=== PATIENT | male | born 1935 | race Caucasian/White ===

== ENCOUNTER → 2017-05-14 20:05 | Emergency (ER) | payer MEDICARE ==
[~2017-05-14 20:05] MED LIST: NS 0.9% 1000 ML* 1,000 ML IV ONE
--- NOTE | 2017-05-14 21:16 | RAD ---
Indication: Weakness. Single frontal view of the chest performed at 2034 hours was reviewed. Comparison is made with previous exam dated August 04, 2016. No mediastinal shift is noted. Heart is of normal size and configuration. Lung painting appear clear. Indwelling catheter is in place. IMPRESSION: NO ACTIVE CARDIOPULMONARY DISEASE IS NOTED.
[2017-05-14 21:19] LABS: Hematocrit 39 % (42-52); Hemoglobin 13.5 g/dl (14.0-18.0); Mean Corpuscular HGB Conc 35 g/dl (31-36); Mean Corpuscular Hemoglobin 31 pg (27-31); Mean Corpuscular Volume 88 fL (80-94); Mean Platelet Volume 7 um3 (7.4-10.4); Red Blood Count 4.39 10^6/ul (4.0-5.4); Red Cell Distribution Width 14 % (10.5-15); White Blood Count 8.8 10^3/ul (3.5-10.8)
[2017-05-14 21:46] LABS: Albumin 3.8 g/dL (3.2-5.2); BUN/Creatinine Ratio 14.5 (8-20); Calcium 9.2 mg/dL (8.6-10.3); EGFR African American 76.9 (>60); EGFR Non-African American 59.8 (>60); Globulin 3.1 g/dL (2-4); Magnesium 1.6 mg/dL (1.9-2.7); Potassium 3.8 mmol/L (3.5-5.0); Total Bilirubin 0.6 mg/dL (0.2-1.0); Total Protein 6.9 g/dL (6.4-8.9)
[2017-05-14 21:54] LABS: Budding Yeast Present (Absent); Urine Bacteria Absent (Absent); Urine Bilirubin Negative (Negative); Urine Glucose Negative (Negative); Urine Nitrite Negative (Negative)
[2017-05-14 22:13] LABS: TSH (Thyroid Stimulating Horm) 1.71 mcIU/mL (0.34-5.60)
--- NOTE | 2017-05-14 23:17 | ED ---
Maya Fairbanks Thomas, scribed for Alma Olson MD on 05/14/17 at 2026 . Syncope/Near Syncope - HPI Summary HPI Summary: The pt is a 81 y/o M BIB EMS c/o weakness that began suddenly today at 18:00. He reported that he felt the need to take a nap, which is atypical for him. When he tried to get up, he slid out of bed and could not get up. The weakness is aggravated and alleviated by nothing. The patient has treated the weakness with nothing [employer]. Pt additionally c/o vomiting (2x this PM), dysuria, and difficulty with voiding. He has consumed a small amount of liquid today. Pt denies any pain and SOB. PMHx: esophageal CA (with chemotherapy and radiation therapy, diagnosed August 2016), DM, HTN, HLD. PSHx: appendicitis. He is accompanied by his significant other. His primary care doctor is Dr. Ozuna. He sees Dr. Santos for his esophageal CA. - History Of Current Complaint Chief Complaint: EDGeneral Time Seen by Provider: 05/14/17 20:11 Hx Obtained From: Patient Onset/Duration: Sudden Onset, Lasting Hours - onset today at 18:00, Still Present Context: Unwitnessed Associated Head Trauma: No Associated Signs And Symptoms: Vomiting - 2x this PM, Weakness - onset today at 18:00, Other - POS: dysuria, difficulty voiding; NEG: any pain, SOB - Allergies/Home Medications Allergies/Adverse Reactions: Allergies Allergy/AdvReac Type Severity Reaction Status Date / Time No Known Allergies Allergy Verified 05/14/17 21:01 PMH/Surg Hx/FS Hx/Imm Hx Previously Healthy: No Endocrine/Hematology History: Reports: Hx Diabetes Cardiovascular History: Reports: Hx Hypercholesterolemia, Hx Hypertension Denies: Hx Myocardial Infarction Respiratory History: Denies: Other Respiratory Problems/Disorders GI History: Reports: Hx Gastroesophageal Reflux Disease, Other GI Disorders - Gi "issues" History: Denies: Hx Renal Disease Musculoskeletal History: Reports: Hx Arthritis Sensory History: Reports: Hx Contacts or Glasses - not with the pt, Hx Glaucoma - controlled, Hx Hearing Aid - bilat, only wears 1, Other Sensory Impairments - [place]; does not have hearing aides with him Opthamlomology History: Reports: Hx Contacts or Glasses - not with the pt, Hx Glaucoma - controlled, Other Sensory Impairments - [place]; does not have hearing aides with him Neurological History: Reports: Other Neuro Impairments/Disorders - diabetic neuropathy fingers and feets - Cancer History Cancer Type, Location and Year: ESOPHAGUS - Surgical History Surgery Procedure, Year, and Place: APPENDECTOMY Hx Anesthesia Reactions: No Infectious Disease History: No Infectious Disease History: Denies: Traveled Outside the [place] in Last 30 Days - Family History Known Family History: Positive: Cardiac Disease - Father of [place] at age of 65 - Social History Alcohol Use: None Substance Use Type: Reports: None Smoking Status (MU): Former Smoker Review of Systems Negative: Fever Negative: Shortness Of Breath Positive: Vomiting - 2x Positive: discharge, other - POS: difficulty voiding Negative: Other - NEG: any pain Positive: Weakness - onset today at 18:00 All Other Systems Reviewed And Are Negative: Yes Physical Exam Triage Information Reviewed: Yes Vital Signs On Initial Exam: Initial Vitals Temp Pulse Resp BP Pulse Ox 98.9 F 98 20 139/77 96 05/14/17 20:11 05/14/17 20:11 05/14/17 20:11 05/14/17 20:11 05/14/17 20:11 Vital Signs Reviewed: Yes Appearance: Positive: Well-Appearing, No Pain Distress Skin: Positive: Warm, Skin Color Reflects Adequate Perfusion, Dry Eyes: Positive: EOMI, BEBE ENT: Positive: Pharynx normal, TMs normal Neck: Positive: Supple, Nontender Respiratory/Lung Sounds: Positive: Clear to Auscultation, Breath Sounds Present. Negative: Rales, Rhonchi, Wheezes Cardiovascular: Positive: RRR. Negative: Murmur, Rub, Other - NEG: gallop Abdomen Description: Positive: Nontender, Soft. Negative: Distended, Guarding, Other: - NEG: rebound Bowel Sounds: Positive: Present Musculoskeletal: Positive: Strength/ROM Intact. Negative: Edema Left, Edema Right Neurological: Positive: Sensory/Motor Intact, Alert, Oriented to Person Place, Time, CN Intact II-III Psychiatric: Positive: Affect/Mood Appropriate Diagnostics - Vital Signs Vital Signs Temp Pulse Resp BP Pulse Ox 05/14/17 20:11 98.9 F 98 20 139/77 96 - Laboratory Lab Results: Lab Results 05/14/17 05/14/17 05/14/17 Range/Units 21:11 21:11 21:11 WBC 8.8 (3.5-10.8) 10^3/ul RBC 4.39 (4.0-5.4) 10^6/ul Hgb 13.5 L (14.0-18.0) g/dl Hct 39 L (42-52) % MCV 88 (80-94) fL MCH 31 (27-31) pg MCHC 35 (31-36) g/dl RDW 14 (10.5-15) % Plt Count 174 (150-450) 10^3/ul MPV 7 L (7.4-10.4) um3 Neut % (Auto) 91.6 H (38-83) % Lymph % (Auto) 4.3 L (25-47) % [place] % (Auto) 3.9 (1-9) % Eos % (Auto) 0 (0-6) % Baso % (Auto) 0.2 (0-2) % Absolute Neuts (auto) 8.1 H (1.5-7.7) 10^3/ul Absolute Lymphs (auto) 0.4 L (1.0-4.8) 10^3/ul Absolute Monos (auto) 0.3 (0-0.8) 10^3/ul Absolute Eos (auto) 0 (0-0.6) 10^3/ul Absolute Basos (auto) 0 (0-0.2) 10^3/ul Absolute Nucleated RBC 0.01 10^3/ul Nucleated RBC % 0.1 INR (Anticoag Therapy) 1.11 (0.89-1.11) Sodium 129 L (133-145) mmol/L Potassium 3.8 (3.5-5.0) mmol/L Chloride 97 L (101-111) mmol/L Carbon Dioxide 23 (22-32) mmol/L Anion Gap 9 (2-11) mmol/L BUN 17 (6-24) mg/dL Creatinine 1.17 (0.67-1.17) mg/dL Est GFR ( Amer) 76.9 (>60) Est GFR (Non-Af Amer) 59.8 (>60) BUN/Creatinine Ratio 14.5 (8-20) Glucose 196 H (70-100) mg/dL Lactic Acid (0.5-2.0) mmol/L Calcium 9.2 (8.6-10.3) mg/dL Magnesium 1.6 L (1.9-2.7) mg/dL Total Bilirubin 0.60 (0.2-1.0) mg/dL AST 19 (13-39) U/L ALT 12 (7-52) U/L Alkaline Phosphatase 79 (34-104) U/L Troponin I 0.00 (<0.04) ng/mL Total Protein 6.9 (6.4-8.9) g/dL Albumin 3.8 (3.2-5.2) g/dL Globulin 3.1 (2-4) g/dL Albumin/Globulin Ratio 1.2 (1-3) TSH 1.71 (0.34-5.60) mcIU/mL Urine Color Urine Appearance Urine pH (5-9) Ur Specific Cranks (1.010-1.030) Urine Protein (Negative) Urine Ketones (Negative) Urine Blood (Negative) Urine Nitrate (Negative) Urine Bilirubin (Negative) Urine Urobilinogen (Negative) Ur Leukocyte Esterase (Negative) Urine WBC (Auto) (Absent) Urine RBC (Auto) (Absent) Ur Squamous Epith Cells (Absent) Urine Bacteria (Absent) Urine Yeast (Absent) Urine Glucose (Negative) 05/14/17 05/14/17 Range/Units 21:11 21:35 WBC (3.5-10.8) 10^3/ul RBC (4.0-5.4) 10^6/ul Hgb (14.0-18.0) g/dl Hct (42-52) % MCV (80-94) fL MCH (27-31) pg MCHC (31-36) g/dl RDW (10.5-15) % Plt Count (150-450) 10^3/ul MPV (7.4-10.4) um3 Neut % (Auto) (38-83) % Lymph % (Auto) (25-47) % [place] % (Auto) (1-9) % Eos % (Auto) (0-6) % Baso % (Auto) (0-2) % Absolute Neuts (auto) (1.5-7.7) 10^3/ul Absolute Lymphs (auto) (1.0-4.8) 10^3/ul Absolute Monos (auto) (0-0.8) 10^3/ul Absolute Eos (auto) (0-0.6) 10^3/ul Absolute Basos (auto) (0-0.2) 10^3/ul Absolute Nucleated RBC 10^3/ul Nucleated RBC % INR (Anticoag Therapy) (0.89-1.11) Sodium (133-145) mmol/L Potassium (3.5-5.0) mmol/L Chloride (101-111) mmol/L Carbon Dioxide (22-32) mmol/L Anion Gap (2-11) mmol/L BUN (6-24) mg/dL Creatinine (0.67-1.17) mg/dL Est GFR ( Amer) (>60) Est GFR (Non-Af Amer) (>60) BUN/Creatinine Ratio (8-20) Glucose (70-100) mg/dL Lactic Acid 2.2 H* (0.5-2.0) mmol/L Calcium (8.6-10.3) mg/dL Magnesium (1.9-2.7) mg/dL Total Bilirubin (0.2-1.0) mg/dL AST (13-39) U/L ALT (7-52) U/L Alkaline Phosphatase (34-104) U/L Troponin I (<0.04) ng/mL Total Protein (6.4-8.9) g/dL Albumin (3.2-5.2) g/dL Globulin (2-4) g/dL Albumin/Globulin Ratio (1-3) TSH (0.34-5.60) mcIU/mL Urine Color Yellow Urine Appearance Clear Urine pH 6.0 (5-9) Ur Specific Cranks 1.015 (1.010-1.030) Urine Protein 2+(100 mg/dl) H (Negative) Urine Ketones Trace H (Negative) Urine Blood Negative (Negative) Urine Nitrate Negative (Negative) Urine Bilirubin Negative (Negative) Urine Urobilinogen Negative (Negative) Ur Leukocyte Esterase Trace H (Negative) Urine WBC (Auto) 1+(6-10/hpf) H (Absent) Urine RBC (Auto) Trace(0-2/hpf) (Absent) Ur Squamous Epith Cells Present H (Absent) Urine Bacteria Absent (Absent) Urine Yeast Present H (Absent) Urine Glucose Negative (Negative) Result Diagrams: 05/14/17 21:11 05/14/17 21:11 Lab Statement: Any lab studies that have been ordered have been reviewed, and results considered in the medical decision making process. - Radiology CXR Xray Interpretation: No Acute Changes - No acute changes. ED physician has reviewed this report and agrees. Radiology Interpretation Completed By: Radiologist - EKG 20:12 Cardiac Rate: NL - 95 BPM EKG Interpretation: RBBB. No changes from prior EKG at 08/09/16 except faster rate. 20:59 Cardiac Rate: NL - 95 BPM EKG Interpretation: RBBB. No changes from prior EKG at 08/09/16 except faster rate. Course/Dx Course Of Treatment: labs look ok with sl elevation of lactic acid, pt had hemphill placed for over 450 cc of urine in bladder on scanner post void, on placement of hemphill there was over 1000 cc found, pt feeling better if 2nd lactic is improved pt can go home with diagnosis of urinary obstruction - Diagnoses Provider Diagnoses: Urinary obstruction Discharge - Discharge Plan Condition: Stable Disposition: HOME The documentation as recorded by the Maya wynne Thomas accurately reflects the service I personally performed and the decisions made by me, Alma Olson MD.
[2017-05-14 23:19] VITALS: BP 132/66
== END | disposition home or self-care (01) ==
LOC: ED 20:05
DX: N13.9 Obstructive and reflux uropathy, unspecified (principal); I45.10 Unspecified right bundle-branch block; K21.9 Gastro-esophageal reflux disease without esophagitis; I10 Essential (primary) hypertension; Z87.891 Personal history of nicotine dependence
CPT/HCPCS: 36415; 71010; 80053; 81003; 81015; 83605; 83735; 84443; 84484; 85025; 85610; 87086; 87106; 93005; 99283

== ENCOUNTER 2018-04-05 06:34 | Day surgery (SDC) | payer MEDICARE ==
[~2018-04-05 06:34] MED LIST changes: +Acetaminophen TAB* 325 MG PO PRN; +Buffered Lidocaine 0.9% SYRIN* 5 ML/SYR SYRINGE INTRADERM ONE; -NS 0.9% 1000 ML* 1,000 ML IV ONE
[2018-04-05] MEDS ORDERED: Midazolam* 1 MG/ML 2 ML VIAL (2 MG) ONE (07:38)
[2018-04-05 08:44] VITALS: BP 149/90
[2018-04-05] MEDS ORDERED: Tetracaine 0.5% OPTH.SOL 4 ML* 1 DROP BTL ONE (12:46)
[2018-04-05] MEDS ORDERED: Povidone Iodine 5% OPTH* 30 ML BTL ONE (12:46)
[2018-04-05] MEDS ORDERED: acetaZOLAMIDE TAB* 250 MG ONE (12:46)
[2018-04-05] MEDS ORDERED: Lidocaine 1%* 5 ML VIAL ONE (12:46)
[2018-04-05] MEDS ORDERED: Ketorolac 0.5% OPHTH (NF) 0.5 % 5 ML BTL ONE (12:46)
[2018-04-05] MEDS ORDERED: Phenylephrine 2.5% OPTH.SOL* 2 ML BTL ONE (12:46)
[2018-04-05] MEDS ORDERED: Neomycin/Polymy/Dex OPHTH.OIN* 3.5 GM ONE (12:46)
[2018-04-05] MEDS ORDERED: Cyclopentolate 1% OPTH.SOL* 2 ML BTL ONE (12:46)
[2018-04-05] MEDS ORDERED: Tropicamide 1% OPTH.SOL* BTL ONE (12:46)
--- NOTE | 2018-04-05 23:51 | OP ---
DATE OF OPERATION: 04/05/18 - [facility] DATE OF : 35 SURGEON: Brody Gonzales MD ANESTHESIA: Monitored anesthesia care. PRE-OP DIAGNOSIS: Cataract, right eye with astigmatism. POST-OP DIAGNOSIS: Cataract, right eye with astigmatism. OPERATIVE PROCEDURE: Extracapsular cataract extraction of the right eye with intraocular lens implant. IMPLANTS: SN6AT5 20 diopter lens at 179 degrees to the right eye. COMPLICATIONS: None. DESCRIPTION OF PROCEDURE: The patient was given phenylephrine 2.5% and cyclopentolate 1% eye drops to the operative eye in the preoperative area. Corneal markings were placed with the patient sitting in upright position to facilitate toric lens placement. The patient was taken to the operating room where a time-out was taken to identify the correct patient, site, and side of surgery. The patient's right eye was prepped and draped in the usual sterile fashion with 5% Betadine. A second time-out was taken to verify the correct patient, site, and side of surgery and correct lens implant. A lid speculum was placed to the left eye. Corneal markings were placed at 179 degrees to facilitate toric lens placement. A 1-mm paracentesis blade was used to make a clear corneal incision at the superotemporal position. Preservative free 1% lidocaine was injected into the anterior chamber. DisCoVisc was then injected into the anterior chamber. A 2.75 mm keratome blade was used to make a triplanar incision at the inferotemporal position. A Malyugin ring was then inserted due to poor pupillary dilation. A cystotome initiated a capsulorrhexis which was completed with Utrata forceps in a continuous and curvilinear manner. Hydrodissection of the lens was performed with BSS on a cannula. The lens could be spun in a capsular bag. The phacoemulsification handpiece was used with a [id number] technique to remove the nucleus with 14.66 CDE. The I /A handpiece then removed the residual cortical lens material. DisCoVisc was injected to inflate the capsular bag. The planned SN6AT5 20.0 diopter lens was then injected into the capsular bag and rotated to 179 degrees. The residual DisCoVisc was removed from the eye with the I/A handpiece. The corneal incisions were hydrated and no leaks occurred at physiologic pressure around 20 mmHg per palpation. The lid speculum was removed and drapes removed. Maxitrol ointment was placed to the surface of the operative eye. An adhesive patch and shield was then placed on the operative eye. The patient was taken to the postoperative area in stable condition. [id number]/[facility] #: [id number] MTDD
== END 2018-04-05 08:51 | disposition home or self-care (01) ==
LOC: OREAST 06:34
PROVIDERS: ATTEND Student in an Organized Health Care Education/Training Program
DX: H25.11 Age-related nuclear cataract, right eye (principal); H21.561 Pupillary abnormality, right eye; H40.1131 Primary open-angle glaucoma, bilateral, mild stage; H52.201 Unspecified astigmatism, right eye; E11.9 Type 2 diabetes mellitus without complications; Z79.4 Long term (current) use of insulin; I10 Essential (primary) hypertension; E78.00 Pure hypercholesterolemia, unspecified; M19.90 Unspecified osteoarthritis, unspecified site; Z85.01 Personal history of malignant neoplasm of esophagus
CPT/HCPCS: A9270-GY; J2250; V2787

== ENCOUNTER 2018-04-12 10:34 | Day surgery (SDC) | payer MEDICARE ==
[2018-04-12] MEDS ORDERED: Midazolam* 1 MG/ML 2 ML VIAL (2 MG) ONE (12:24)
[2018-04-12 13:24] VITALS: BP 129/84
[2018-04-12] MEDS ORDERED: Tropicamide 1% OPTH.SOL* BTL ONE (14:12)
[2018-04-12] MEDS ORDERED: Ketorolac 0.5% OPHTH (NF) 0.5 % 5 ML BTL ONE (14:12)
[2018-04-12] MEDS ORDERED: Neomycin/Polymy/Dex OPHTH.OIN* 3.5 GM ONE (14:12)
[2018-04-12] MEDS ORDERED: Phenylephrine 2.5% OPTH.SOL* 2 ML BTL ONE (14:12)
[2018-04-12] MEDS ORDERED: acetaZOLAMIDE TAB* 250 MG ONE (14:12)
[2018-04-12] MEDS ORDERED: Tetracaine 0.5% OPTH.SOL 4 ML* 1 DROP BTL ONE (14:12)
[2018-04-12] MEDS ORDERED: Lidocaine 1%* 5 ML VIAL ONE (14:12)
[2018-04-12] MEDS ORDERED: Cyclopentolate 1% OPTH.SOL* 2 ML BTL ONE (14:12)
[2018-04-12] MEDS ORDERED: Povidone Iodine 5% OPTH* 30 ML BTL ONE (14:12)
--- NOTE | 2018-04-13 12:42 | OP ---
DATE OF OPERATION: 04/12/18 - [facility] DATE OF : 35 SURGEON: Brody Gonzales MD ANESTHESIA: Monitored anesthesia care. PRE-OP DIAGNOSIS: Cataract, left eye, with astigmatism. POST-OP DIAGNOSIS: Cataract, left eye, with astigmatism. OPERATIVE PROCEDURE: Extracapsular cataract extraction of the left eye with intraocular lens implant. IMPLANTS: SN6AT4 20.0 diopter lens at 178 degrees. COMPLICATIONS: None. DESCRIPTION OF PROCEDURE: The patient was given phenylephrine 2.5% and cyclopentolate 1% eye drops to the operative eye in the preoperative area. The patient was taken to the operating room where a time-out was taken to identify the correct patient, site, and side of surgery. The patient's left eye was prepped and draped in the usual sterile fashion with 5% Betadine. A second time -out was taken to verify the correct patient, site, and side of surgery and correct lens implant. A lid speculum was placed to the left eye. A 1-mm paracentesis blade was used to make a clear corneal incision in the inferotemporal position. Preservative-free 1% lidocaine was injected into the anterior chamber. DisCoVisc was then injected into the anterior chamber. A 2.75 -mm keratome blade was used to make a triplanar incision at the superotemporal position. A Malyugin ring was then inserted due to poor pupillary dilation. A cystotome initiated a capsulorrhexis which was completed with Utrata forceps in a continuous and curvilinear manner. Hydrodissection of the lens was performed with BSS on a cannula. The lens could be spun in the capsular bag. The phacoemulsification hand-piece was used with a [id number] technique to remove the nucleus with 27.2 CDE. The I/A handpiece then removed the residual cortical lens material. DisCoVisc was injected to inflate the capsular bag. The planned SN6AT4 20.0 diopter lens was injected into the capsular bag and rotated to 178 degrees. The residual DisCoVisc was removed from the eye with the I/A handpiece. The corneal incisions were hydrated and no leaks occurred at physiologic pressure around 20 mmHg per palpation. The lid speculum was removed and drapes removed. Maxitrol ointment was placed to the surface of the operative eye. An adhesive patch and shield was then placed on the operative eye. The patient was taken to the postoperative area in stable condition. [id number]/[facility] #: [id number] RODRÍGUEZ
== END 2018-04-12 13:27 | disposition home or self-care (01) ==
LOC: OREAST 10:34
PROVIDERS: ATTEND Student in an Organized Health Care Education/Training Program
DX: H25.12 Age-related nuclear cataract, left eye (principal); H40.1131 Primary open-angle glaucoma, bilateral, mild stage; H52.202 Unspecified astigmatism, left eye; E11.9 Type 2 diabetes mellitus without complications; Z79.4 Long term (current) use of insulin; I10 Essential (primary) hypertension; E78.00 Pure hypercholesterolemia, unspecified; M19.90 Unspecified osteoarthritis, unspecified site; Z85.01 Personal history of malignant neoplasm of esophagus
CPT/HCPCS: A9270-GY; J2250; V2787

== ENCOUNTER 2018-06-02 10:17 | Inpatient (IN) | payer MEDICARE ==
--- OUTSIDE RECORDS SUMMARY | 2018-06-02 11:22 | XMS REPORT | Continuity of Care Document ---
:1935 External Reference #:[id number] Author Name Brody Gonzales M.D. Address [address] [place] [address] Care Team Providers Name Role Phone Chuy Ozuna M.D. Primary Care Physician Unavailable Payers Type Date Identification Numbers Payment Provider Subscriber Effective: 2000 Policy Number: [id number] Medicare - [facility] Avila Aguilar PayID: [id number] [address] [place] [address] Policy Number: [id number] Formerly [facility] Avila Zamora [employer] Number: [id number] [id number] [address] PayID: [id number] [place] [address] Advance Directives Description No Information Available Problems Date Description Provider Status Onset: Multiple boils Active Onset: Bilateral hearing loss Active Onset: Essential hypertension Active Onset: Hypercholesterolemia Active Onset: Arthritis Active Onset: 07/15/2004 Type 2 diabetes mellitus Active Onset: 04/05/2015 Primary open angle glaucoma Sandra Bynmu O.D. Active Onset: 04/05/2015 Chronic allergic conjunctivitis Sandra Bynum O.D. Active Onset: 04/05/2015 Nuclear senile cataract Sandra Bynum O.D. Active Onset: 04/05/2015 Mild / Early Stage Glaucoma Sandra Bynum O.D. Active Onset: 10/19/2015 Combined form of senile cataract Sandra Bynum O.D. Active Onset: Malignant tumor of esophagus Active Onset: 10/29/2016 Bilateral primary open angle Sandra Bynum O.D. Active glaucoma Onset: 04/06/2018 Presence of intraocular lens Brody Gonzales M.D. 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 Active Family History Date Family Member(s) Problem(s) Comments Father No Current Problems Mother Cataract Mother Diabetes Mellitus Type 2 Social History Type Date Description Comments Sex Unknown Marital Status Has been 1 time Occupation [employer] Work Status Retired ETOH Use Rarely consumes alcohol Tobacco Use Start: Unknown Patient has never smoked Recreational Drug Use Denies Drug Use Smoking Status Reviewed: 05/13/18 Patient has never smoked Allergies, Adverse Reactions, Alerts Description No Known Drug Allergies Medications Medication Date Status Form Strength Qnty SIG Indications Ordering Provider Prednisolone 05/12 Active Suspension 1% 15ml 1 drops Brody Acetate both eyes hoang, three M.D. times a day Artificial Tears 05/12 Active Solution 0.1-0.3% as needed Brody Marcello Gonzales Latanoprost 05/12 Active Solution 0.005% 22.5m 1 drop Brody l both eyes Christian, every M.D. night Flonase Allergy Active Suspension 50mcg/Act Unknown Relief /0000 Valsartan Active Tablets 80mg Unknown /0000 Lantus Active Solution 100Unit/M Unknown /0000 L Omeprazole Active Capsules DR 20mg take 1 Unknown /0000 capsule by mouth once daily Amlodipine Active Tablets 10mg take 1 Unknown Besylate /0000 tablet by mouth once daily Transderm-Scop Active Patches 1mg/3Days Unknown (1.5 MG) /0000 72HR Bactrim DS Active Tablets 800-160mg 1 by Unknown /0000 mouth twice a day for 10 days Ciprofloxacin HCL 03/24 Hx Solution 0.3% 10uni instill ts one drop Christian, - in the M.D. 04/26 right eye /2017 three times a day, start the day before surgery Ketorolac 03/24 Hx Solution 0.5% 10ml use one Brody Tromethamine /2017 drop in , - the right M.D. 04/22 eye three times a day, start the day before surgery Prednisolone 03/24 Hx Suspension 1% 15ml 1 drops Brody right eye Christian, - three M.D. 04/22 times day. taper as directed Lastacaft 04/05 Hx Solution 0.25% 3ml 1 drop H10.45 Sandra Ochoa both eyes Stockwin, - every O.D. 04/17 Fish Oil 04/04 Hx Capsules 1000mg 1 by Sandra Ochoa mouth Stockwin, - every day O.D. 09/28 Flax Seed Oil 04/04 Hx Capsules 1000mg 1 by Sandra Ochoa mouth Stockwin, - every day O.D. 09/28 Travatan Z 04/04 Hx Solution 0.004% 1 drop Sandra Ochoa both eyes Stockwin, - every O.D. 10/25 Metformin HCL 00/00 Hx Tablets 1000mg Unknown / - 09/28 Aspir-81 00/ Hx Tablets DR 81mg Unknown /09/28 Hydrochlorothiazid Hx Capsules 12.5mg Unknown e - 04/17 Atenolol 00/00 Hx Tablets 50mg Unknown /09/28 Naproxen 00/00 Hx Tablets 250mg Unknown / - 04/17 Simvastatin /00 Hx Tablets 20mg Unknown /09/28 Glipizide /00 Hx Tablets 10mg Unknown /09/28 Multi Complete / Hx Capsules Unknown /09/28 Vitamin B-2 00/00 Hx Tablets 50mg Unknown /09/28 Hydrocodone-Acetam 00/00 Hx Tablets 5-325mg Take 1 Unknown inophen /0000 Tablet By - Mouth 04/17 Every To 6 Hours If Needed For Pain Latanoprost Hx Solution 0.005% 1 drop Sandra Ochoa / both eyes Stockwin, - every O.D. 04/22 Vitamin C 00/00 Hx Chewtabs 500mg Unknown / - 09/28 Vitamin D3 High 00/00 Hx Capsules 1000Unit Unknown Potency /09/28 Osteo Bi-Flex 00/00 Hx Tablets Unknown Advanced Triple /0000 Strength - 09/28 Glucosamine 00 Hx Capsules 500Comp Unknown Chondroitin 500 /0000 Complex - 09/28 Spironolactone Hx Tablets 50mg Unknown /0000 - 09/28 Gabapentin Hx Capsules 100mg Unknown / - 09/28 Flunisolide Hx Solution 25mcg/Act Unknown /0000 (0.025%) - 09/28 Aleve Hx Capsules 220mg as needed Unknown / - 09/28 Tylenol Hx Tablets 325mg as needed Unknown / - 09/[address] 5mg as needed Unknown / - 09/28 Marquez Concentrate Hx Concentrate Unknown / - 09/28 Diclofenac Sodium Hx Gel 1% apply 2 Unknown /0000 grams - twice a 09/28 day needed for pain To The Hands Ondansetron Hx Tablets 4mg Dissolve Unknown /0000 Dispers 1 Tablet - On Tongue 04/27 Every Hours If Needed Lubricant Eye Hx Solution 0.4-0.3% 1 drop Unknown Drops /0000 both eyes - every day 05/12 Immunizations Description No Information Available Vital Signs Description No Information Available Results Test Date Facility Test Result H/L Range Note Laboratory test 04/12/2018 [facility] 125 mg/dL High 70-[address] [place] [address] (607)- - Laboratory test 04/05/2018 [facility] 140 mg/dL High 70-100 [address] [place] [address] (607)- - 1 Tail Trimmer: [id number] Tail Trimmer: [id number] Procedures Date Code Description Status 04/12/2018 37581 Cataract Surgery Complex Completed 04/05/2018 84906 Cataract Surgery Complex Completed 03/24/2018 93555 Ophthalmic Biometry Completed 03/24/2018 65417 Ophthalmic Biometry Completed 03/02/2018 77146 Est Patient Comprehensive Exam Completed 11/26/2017 44618 Scanning Computerized Ophthalmic Diagnostic Imag Posterior Completed Seg On 11/26/2017 50650 Visual Field Exam Extended Completed 11/26/2017 19047 Est Patient Comprehensive Exam Completed 04/29/2017 97487 Est Patient Intermediate Exam Completed 10/29/2016 03553 Scanning Computerized Ophthalmic Diagnostic Imag Posterior Completed Seg On 10/29/2016 55474 Visual Field Exam Extended Completed 10/29/2016 46475 Est Patient Comprehensive Exam Completed 04/18/2016 56856 Est Patient Intermediate Exam Completed 04/18/2016 90055 Visual Field Exam Extended Completed 10/19/2015 09860 Scanning Computerized Ophthalmic Diagnostic Imag Posterior Completed Seg On 10/19/2015 22973 Est Patient Comprehensive Exam Completed 04/05/2015 40383 Visual Field Exam Extended Completed 04/05/2015 28262 Est Patient Comprehensive Exam Completed 10/06/2014 83006 Scanning Computerized Ophthalmic Diagnostic Imag Posterior Completed Seg On 10/06/2014 76895 Est Patient Comprehensive Exam Completed 04/06/2014 59979 Visual Field Exam Extended Completed 10/07/2013 87728 Scanning Computerized Ophthalmic Diagnostic Imag Posterior Completed Seg On 10/07/2013 72458 Est Patient Comprehensive Exam Completed 04/07/2013 03245 Visual Field Exam Extended Completed 04/07/2013 34293 Est Patient Intermediate Exam Completed 10/04/2012 74585 Est Patient Comprehensive Exam Completed 10/04/2012 32092 Scanning Computerized Ophthalmic Diagnostic Imag Posterior Completed Seg On 03/19/2012 63402 Visual Field Exam Extended Completed 03/19/2012 45652 Est Patient Intermediate Exam Completed 09/17/2011 10199 Scanning Computerized Ophthalmic Diagnostic Imag Posterior Completed Seg On 09/17/2011 40980 Est Patient Comprehensive Exam Completed 05/14/2011 47428 Visual Field Exam Extended Completed 05/14/2011 91669 Est Patient Intermediate Exam Completed 04/25/2011 24149 Scanning Computerized Ophthalmic Diagnostic Imag Posterior Completed Seg On 04/25/2011 93203 Determination Of Refractive State Completed 04/25/2011 55580 Est Patient Comprehensive Exam Completed 10/25/2010 75314 Est Patient Intermediate Exam Completed 04/24/2010 20162 Est Patient Intermediate Exam Completed 04/24/2010 63039 Visual Field Exam Extended Completed 04/24/2010 28686 Scanning Laser W/Interp And Report Completed 10/24/2009 25230 Visual Field Exam Extended Completed 10/24/2009 72523 Est Patient Intermediate Exam Completed 05/09/2009 70250 Visual Field Exam Extended Completed 04/25/2009 88422 Scanning Laser W/Interp And Report Completed 04/25/2009 24622 Determination Of Refractive State Completed 04/25/2009 37141 Est Patient Comprehensive Exam Completed 04/25/2009 70342 Pachymetry Completed 03/03/2007 33351 Visual Field Exam Extended Completed 02/25/2005 32377 Rescheduled Appointment Completed 08/30/2004 52392 Est Patient Intermediate Exam Completed 08/27/2004 92127 Determination Of Refractive State Completed 08/27/2004 00378 Est Patient Comprehensive Exam Completed 02/21/2004 29631 Est Patient Intermediate Exam Completed Encounters Type Date Location Provider Dx Diagnosis Office Visit 03/24/2018 Brody Petit, H25.11 Age- related 9:00a , kayden MKatrina nuclear cataract, right eye H40.1131 Primary open-angle glaucoma, bilateral, mild stage H25.12 Age-related nuclear cataract, left eye Office Visit 04/06/2014 10:40a Joseph Ochoa 365.11 Primary Ed De La Torre MD, kayden Bynum O.D. Angle Glaucoma 365.71 Mild / Early Stage Glaucoma Office Visit 08/23/2008 10:45a Joseph Velazquez, 365.11 Primary Open Angle MD Wil, kayden Armendariz Glaucoma Office Visit 02/22/2008 8:45a Joseph Velazquez 365.11 Primary Open Angle MD Wil, kayden Armendariz Glaucoma Office Visit 08/19/2007 9:00a Joseph Velazquez 365.11 Primary Open Angle MD Wil, kayden Armendariz Glaucoma Office Visit 03/03/2007 9:00a Joseph Velazquez 365.11 Primary Open Angle MD Wil, kayden Armednariz Glaucoma Office Visit 03/03/2007 8:00a Joseph Velazquez 365.11 Primary Open Angle MD Wil, kayden MKatrina Glaucoma Office Visit 02/26/2006 10:30a Joseph Velazquez, 250.00 Diabetes/ Type 2 MD Wil, kayden Singh. W/O Complication 365.11 Primary Open Angle Glaucoma Office Visit 08/28/2005 10:30a Joseph Velazquez 365.11 Primary Open Angle MD Wil, kayden MKatrina Glaucoma Office Visit 02/27/2005 10:45a Joseph Velazquez, 365.11 Primary Open Angle MD Wil, pc Samantha. Glaucoma Office Visit 09/02/2004 12:10p Joseph Ochoa 372.14 Allergic MD Wil, kayden Bynum O.D. Conjunctivitis Plan of Treatment Future Appointment(s):10/28/2018 11:00 am - Brody Gonzales M.D. at Joseph De La Torre MD, 05/13/2018 - Brody Gonzales M.D.Z96.1 Presence of intraocular lensComments:Smoking can increase the risk of developing or worsening any eye related disease, as well as affect your overall health. If you are a smoker, we strongly recommend that you quit.If you are not a smoker, we strongly recommend that you do not start. The artificial lens implants in both eyes appear to be stable at this time. ~B_STOP USING THE LATANOPROST EYE DROPS.STOP USING THE PREDNISOLONE EYE DROPS.CONTINUE USING OVER THE COUNTER ARTIFICAL TEARS. STORE THE ARTIFICAL TEARS IN THE REFRIGERATOR TOCHILL THE EYEDROPS. USE WARM COMPRESSES(WASHCLOTH) TWO TIMES A DAY(morning and night) FOR 3-5 MINUTES TO BOTH EYES. WASH EYELIDS GENTLY WITH BABY SHAMPOO 2-3 TIMES A WEEK.IF YOUR SYMPTOMS FAIL TO IMPROVE OR WORSEN CALL THE CLINIC AND I WILL PRESCRIBE AN ANTIBIOTIC EYE DROP ~U_NEOMYCIN~u_, USE 1 DROP 3 TIMES A DAY TO BOTH EYES FOR TWO WEEKS THEN STOP. I WILL RECHECK IN 1 MONTH.~b_Follow up:4 Week Follow Up At your next visit, we are not planning to dilate your eyes. However, if you haveany changes in your vision or new symptoms, there are certain situations that require us to dilate your eyes. If Dr. Gonzales requests any additional testing, that may require extra time. If you have any questions before your next appointment, please call our office at .
--- OUTSIDE RECORDS SUMMARY | 2018-06-02 11:22 | XMS REPORT ---
:1935 External Reference #:[id number] Author Organization [facility] Address [address] [place] [address] [place] [address] Phone [phone] Care Team Providers Name Role Phone Chuy Ozuna III, MD Primary Care Physician Unavailable Payers Type Date Identification Numbers Payment Provider Subscriber Medicare Primary Policy Number: [id number] Medicare Avila Aguilar PayID: [id number] [address] [place] [address] Medigap Part B Effective: 2000 Policy Number: [id number] Medicare Avila Aguilar Expires: 2018 PayID: [id number] [address] [place] [address] Medigap Part B Policy Number: [id number] [facility] Avila Aguilar PayID: [id number] [address] [place] [address] Advance Directives Type Date Description Status Comment Other Directive 04/15/2017 Health Care /Living Will Current and Verified Problems Date Description Provider Status Onset: 08/03/2017 Localized, primary osteoarthritis Nelly Strickland M.D. Active Onset: 11/23/2017 Disorder of shoulder Nelly Strickland M.D. Active Onset: 12/24/2017 Injury of shoulder region Babar Go MD Active Onset: 01/18/2018 Type 2 diabetes mellitus Chuy Ozuna M.D. Active Onset: 01/18/2018 Essential hypertension Chuy Ozuna M.D. Active Family History Date Family Member(s) Problem(s) Comments General Diabetes General Heart Disease General Hypertension Father due to Heart Disease () Mother Arthritis, Osteo Mother Arthritis First Brother Diabetes Social History Type Date Description Comments Marital Status Lives With ETOH Use Denies alcohol use Smoking Patient is a former smoker stopped in 1999. Smoked about 40 years, up to 2 ppd. Exercise Type/Frequency Exercises rarely Allergies, Adverse Reactions, Alerts Date Description Reaction Status Severity Comments 03/27/2016 Hayfever active Medications Medication Date Status Form Strength Qnty SIG Indications Ordering Provider Metformin HCL 07/16/ Active Tablets 500mg 120ta 2 by E11.8 Chuy Gilbert 2017 bs mouth Sulma, twice a M.D. day Valsartan / Active Tablets 320mg 1 by Unknown 0000 mouth every day Flonase Allergy / Active Suspension 50mcg/Act spray 1 Unknown Relief 0000 spray in each nostril twice daily Omeprazole / Active Capsules DR 20mg 1 by Unknown 0000 mouth every day Lantus / Active Solution 100Unit/M 40 units Unknown 0000 L daily or as directed Latanoprost / Active Solution 0.005% 1 drop to Unknown 0000 both eyes every evening Osteo Bi-Flex / Active Tablets Unknown Advanced Triple 0000 Strength Amlodipine / Active Tablets 10mg 1 by Unknown Besylate 0000 mouth every day Tamsulosin HCL / Active Capsules 0.4mg take 1 Unknown 0000 capsule by mouth once daily Glucosamine / Active Capsules 1500Com 2 by Unknown Chondroitin 1500 0000 mouth Complex every day at night Meloxicam 12/23/ Hx Tablets 7.5mg 20tab take one M54.2 Chuy Gilbert 2018 - s tab twice Sulma, 03/15/ daily as M.D. 2018 needed for pain, avoid other nsaids Voltaren 03/27/ Hx Gel 1% 200gm apply 2 E83.52 Joseph 2016 grams Moraima, twice M.D. daily as needed for pain to the hands Vitamin B-12 / Hx Tablets Sub 2500mcg 1/week Unknown 0000 Vitamin C / Hx Chewtabs 500mg 1 by Unknown 0000 mouth every day Vitamin D / Hx Tablets 1000Unit by mouth Unknown 0000 everyday Aspirin Ec Low / Hx Tablets DR 81mg 1 by Unknown Dose 0000 mouth every day Osteo Bi-Flex / Hx Tablets 250-200mg 2 by Unknown Regular Strength 0000 mouth every day Multi For Him / Hx Tablets 1 by Unknown 50+ 0000 mouth every day Flaxseed Oil // Hx Capsules 1000mg 1 by Unknown 0000 mouth every day Fish Oil // Hx Capsules 300mg 1 by Unknown Concentrate 0000 mouth twice day Glucosamine / Hx Capsules 500Comp 1 by Unknown Chondroitin 500 0000 mouth Complex every day Latanoprost / Hx Solution 0.005% Unknown 0000 Lantus / Hx Solution 100Unit/M 50 units Unknown 0000 - L 2015 Metformin HCL / Hx Tablets 500mg 1 by Unknown 0000 mouth twice a day Glipizide / Hx Tablets 10mg 1 by Unknown 0000 mouth twice a day Atenolol / Hx Tablets 50mg 1 by Unknown 0000 - mouth day 2017 Spironolactone / Hx Tablets 50mg 1 by Unknown 0000 mouth every day Diclofenac / Hx Tablets DR 75mg take 1 E83.52 Unknown Sodium 0000 - tablet 03/27/ twice a 2015 day with food Atorvastatin / Hx Tablets 40mg 1 by Unknown Calcium 0000 mouth every day Gabapentin / Hx Capsules 100mg 2/day Unknown 0000 Colchicine / Hx Tablets 0.6mg 1 by Unknown 0000 mouth twice a day prn Aleve / Hx Capsules 220mg 2 by Unknown 0000 mouth twice a day as needed Acetaminophen ER / Hx Tablets ER 650mg 1 tab by Unknown 0000 mouth twice a day as needed Dulcolax / Hx Tablets DR 5mg 2 by Unknown 0000 mouth every at bedtime Aspirin Ec Low / Hx Tablets DR 81mg 1 by Unknown Dose 0000 - mouth 07/15/ every day 2016 Glucosamine / Hx Capsules 500Comp 1 by Unknown Chondroitin 500 0000 - mouth Complex 07/16/ twice a 2016 day Medications Administered in Office Medication Date Status Form Strength Qnty SIG Indications Ordering Provider Depomedrol Administered Injection Nelly 40MG 018 Marcello Strickland Depomedrol Administered Injection Nelly 40MG 018 Marcello Strickland Depomedrol Administered Injection Nelly 40MG 018 Marcello Strickland Depomedrol Administered Injection Nelly 40MG 018 Marcello Strickland Depomedrol Administered Injection Nelly 40MG 018 Marcello Strickland Depomedrol Administered Injection Nelly 40MG 017 Marcello Strickland Depomedrol Administered Injection Nelly 40MG 017 Marcello Strickland Vital Signs Date Vital Result Comment 05/19/2018 Height 69 inches 5'9" Heart Rate 88 /min BP Systolic Sitting 122 mmHg BP Diastolic Sitting 80 mmHg Respiratory Rate 24 /min Body Temperature 97.5 F Pain Level 4 03/15/2018 Height 69 inches 5'9" Weight 252.00 lb Heart Rate 116 /min BP Systolic Sitting 140 mmHg BP Diastolic Sitting 86 mmHg Body Temperature 97.6 F O2 % BldC Oximetry 96 % BMI (Body Mass Index) 37.2 kg/m2 02/24/2018 Height 69 inches 5'9" Weight 250.00 lb Heart Rate 108 /min BP Systolic 132 mmHg BP Diastolic 87 mmHg O2 % BldC Oximetry 95 % BMI (Body Mass Index) 36.9 kg/m2 02/10/2018 Height 69 inches 5'9" Weight 249.00 lb Heart Rate 82 /min BP Systolic Sitting 140 mmHg BP Diastolic Sitting 80 mmHg Respiratory Rate 16 /min Pain Level 5 BMI (Body Mass Index) 36.8 kg/m2 01/18/2018 Height 69 inches 5'9" Weight 248.50 lb Heart Rate 96 /min BP Systolic 126 mmHg BP Diastolic 78 mmHg O2 % BldC Oximetry 97 % BMI (Body Mass Index) 36.7 kg/m2 12/24/2017 Height 69 inches 5'9" Weight 253.00 lb BP Systolic 134 mmHg BP Diastolic 78 mmHg Respiratory Rate 20 /min Pain Level 0 BMI (Body Mass Index) 37.4 kg/m2 12/23/2017 Weight 238.00 lb Heart Rate 102 /min BP Systolic Sitting 118 mmHg BP Diastolic Sitting 78 mmHg Body Temperature 98.2 F O2 % BldC Oximetry 96 % 11/23/2017 Height 70 inches 5'10" Heart Rate 58 /min BP Systolic 120 mmHg BP Diastolic 76 mmHg Respiratory Rate 17 /min Body Temperature 97.7 F Pain Level 2 11/09/2017 Height 70 inches 5'10" Weight 248.00 lb BP Systolic 126 mmHg BP Diastolic 82 mmHg Body Temperature 97.9 F BMI (Body Mass Index) 35.6 kg/m2 10/27/2017 Height 69 inches 5'9" Weight 253.00 lb w/ shoes Heart Rate 80 /min reg BP Systolic Sitting 144 mmHg Lue BP Diastolic Sitting 94 mmHg Lue Respiratory Rate 16 /min Pain Level 5 right arm BMI (Body Mass Index) 37.4 kg/m2 10/20/2017 Weight 249.00 lb Heart Rate 93 /min BP Systolic Sitting 135 mmHg BP Diastolic Sitting 82 mmHg Body Temperature 97.2 F O2 % BldC Oximetry 98 % 08/03/2017 Height 69 inches 5'9" Weight 245.00 lb BP Systolic 140 mmHg BP Diastolic 70 mmHg Body Temperature 97.4 F Pain Level 6 BMI (Body Mass Index) 36.2 kg/m2 07/16/2017 Height 69.5 inches 5'9.50" Weight 245.00 lb Heart Rate 98 /min BP Systolic Sitting 126 mmHg BP Diastolic Sitting 60 mmHg Body Temperature 98.1 F O2 % BldC Oximetry 97 % BMI (Body Mass Index) 35.7 kg/m2 04/15/2017 Weight 236.00 lb Heart Rate 96 /min BP Systolic Sitting 130 mmHg BP Diastolic Sitting 78 mmHg Body Temperature 97.1 F O2 % BldC Oximetry 95 % 08/18/2016 Height 70 inches 5'10" Weight 213.00 lb Heart Rate 68 /min BP Systolic 132 mmHg BP Diastolic 74 mmHg Respiratory Rate 18 /min Body Temperature 97.1 F BMI (Body Mass Index) 30.6 kg/m2 03/27/2016 Height 69.5 inches 5'9.50" Weight 243.50 lb Heart Rate 64 /min BP Systolic Sitting 142 mmHg BP Diastolic Sitting 70 mmHg Respiratory Rate 16 /min Body Temperature 97.6 F Pain Level 1 BMI (Body Mass Index) 35.4 kg/m2 Results Test Date Test Result H/L Range Note Laboratory test finding 04/12/2018 Point of Care Glucose 125 mg/dL High 70 -100 1 Laboratory test finding 04/05/2018 Point of Care Glucose 140 mg/dL High 70 -100 2 Basic Metabolic Panel 03/23/2018 Sodium 138 mmol/L 135-145 Potassium 3.6 mmol/L 3.5-5.0 Chloride 105 mmol/L 101-111 Co2 Carbon Dioxide 24 mmol/L 22-32 Anion Gap 9 mmol/L 2-11 Glucose 199 mg/dL High 70-100 Blood Urea Nitrogen 16 mg/dL 6-24 Creatinine 0.94 mg/dL 0.67-1.17 BUN/Creatinine Ratio 17.0 8-20 Calcium 9.6 mg/dL 8.6-10.3 Egfr Non- 76.8 >60 Egfr 93.0 >60 3 Laboratory test finding 03/15/2018 Hemoglobin A1c 6.8 5-7 Laboratory test finding 09/08/2017 Surgical Interface SEE RESULT BELOW 4 Order Laboratory test finding 09/08/2017 Point of Care Glucose 92 mg/dL 70-100 5 Laboratory test finding 09/08/2017 Point of Care Glucose 78 mg/dL 70-100 6 Laboratory test finding 09/08/2017 Point of Care Glucose 94 mg/dL 70-100 7 Urine Culture And 09/01/2017 Urine Culture SEE RESULT BELOW 8 Sensitivities Urinalysis Profile 09/01/2017 Urine Color Yellow Urine Appearance Cloudy Urine Specific [place] 1.016 1.010-1.030 Urine pH 5.0 5-9 Urine Urobilinogen Negative Negative Urine Ketones Negative Negative Urine Protein 1+(30 mg/dL) Negative Urine Leukocytes 3+ Negative Urine Blood 1+ Negative Urine Nitrite Negative Negative Urine Bilirubin Negative Negative Urine Glucose Negative Negative Urine White Blood Cell 3+(>20/hpf) Absent Urine Red Blood Cell 3+(>10/hpf) Absent Urine Bacteria Absent Absent Urine Yeast Present Absent Laboratory test finding 07/16/2017 Hemoglobin A1c 8.0 High 5-7 CBC Auto Diff 06/09/2017 White Blood Count 6.8 10^3/uL 3.5-10.8 Red Blood Count 4.33 10^6/uL 4.0-5.4 Hemoglobin 13.5 g/dL Low 14.0-18.0 Hematocrit 39 % Low 42-52 Mean Corpuscular Volume 90 fL 80-94 Mean Corpuscular Hemoglobin 31 pg 27-31 Mean Corpuscular HGB Conc 35 g/dL 31-36 Red Cell Distribution Width 15 % 10.5-15 Platelet Count 277 10^3/uL 150-450 Mean Platelet Volume 8 um3 7.4-10.4 Abs Neutrophils 4.4 10^3/uL 1.5-7.7 Abs Lymphocytes 1.6 10^3/uL 1.0-4.8 Abs Monocytes 0.6 10^3/uL 0-0.8 Abs Eosinophils 0.1 10^3/uL 0-0.6 Abs Basophils 0.1 10^3/uL 0-0.2 Abs Nucleated RBC 0 10^3/uL Granulocyte % 65.5 % 38-83 Lymphocyte % 23.2 % Low 25-47 Monocyte % 8.7 % 1-9 Eosinophil % 1.7 % 0-6 Basophil % 0.9 % 0-2 Nucleated Red Blood Cells % 0 Comp Metabolic Panel 06/09/2017 Sodium 138 mmol/L 133-145 Potassium 3.5 mmol/L 3.5-5.0 Chloride 104 mmol/L 101-111 Co2 Carbon Dioxide 24 mmol/L 22-32 Anion Gap 10 mmol/L 2-11 Glucose 190 mg/dL High 70-100 Blood Urea Nitrogen 17 mg/dL 6-24 Creatinine 0.99 mg/dL 0.67-1.17 BUN/Creatinine Ratio 17.2 8-20 Calcium 9.7 mg/dL 8.6-10.3 9 Total Protein 7.4 g/dL 6.4-8.9 Albumin 3.7 g/dL 3.2-5.2 Globulin 3.7 g/dL 2-4 Albumin/Globulin Ratio 1.0 1-3 Total Bilirubin 0.40 mg/dL 0.2-1.0 Alkaline Phosphatase 84 U/L 34-104 Alt 17 U/L 7-52 Ast 17 U/L 13-39 Egfr Non- 72.6 >60 Egfr 93.3 >60 10 Laboratory test 06/09/2017 Hemoglobin A1c (Glyco 7.6 % High Less than 6.0 11 finding HGB) Urinalysis Profile 05/14/2017 Urine Color Yellow Urine Appearance Clear Urine Specific [place] 1.015 1.010-1.030 Urine pH 6.0 5-9 Urine Urobilinogen Negative Negative Urine Ketones Trace Negative Urine Protein 2+(100 mg/dL) Negative Urine Leukocytes Trace Negative Urine Blood Negative Negative Urine Nitrite Negative Negative Urine Bilirubin Negative Negative Urine Glucose Negative Negative Urine White Blood Cell 1+(6-10/hpf) Absent Urine Red Blood Cell Trace(0-2/hpf) Absent Urine Bacteria Absent Absent Urine Squamous Epithelial Cell Present Absent Urine Yeast Present Absent Urine Culture And 05/14/2017 Urine Culture SEE RESULT BELOW 12 Sensitivities Inr/Protime 05/14/2017 Inr 1.11 0.89-1.11 Laboratory test finding 05/14/2017 Magnesium 1.6 mg/dL Low 1.9-2.7 TSH (Thyroid Stim Horm) 1.71 mcIU/mL 0.34-5.60 Comp Metabolic Panel 05/14/2017 Sodium 129 mmol/L Low 133-145 Potassium 3.8 mmol/L 3.5-5.0 Chloride 97 mmol/L Low 101-111 Co2 Carbon Dioxide 23 mmol/L 22-32 Anion Gap 9 mmol/L 2-11 Glucose 196 mg/dL High 70-100 Blood Urea Nitrogen 17 mg/dL 6-24 Creatinine 1.17 mg/dL 0.67-1.17 BUN/Creatinine Ratio 14.5 8-20 Calcium 9.2 mg/dL 8.6-10.3 Total Protein 6.9 g/dL 6.4-8.9 Albumin 3.8 g/dL 3.2-5.2 Globulin 3.1 g/dL 2-4 Albumin/Globulin Ratio 1.2 1-3 Total Bilirubin 0.60 mg/dL 0.2-1.0 Alkaline Phosphatase 79 U/L 34-104 Alt 12 U/L 7-52 Ast 19 U/L 13-39 Egfr Non- 59.8 >60 Egfr 76.9 >60 13 Laboratory test finding 05/14/2017 Troponin-I (TnI) 0.00 ng/mL <0.04 CBC Auto Diff 05/14/2017 White Blood Count 8.8 10^3/uL 3.5-10.8 Red Blood Count 4.39 10^6/uL 4.0-5.4 Hemoglobin 13.5 g/dL Low 14.0-18.0 Hematocrit 39 % Low 42-52 Mean Corpuscular Volume 88 fL 80-94 Mean Corpuscular Hemoglobin 31 pg 27-31 Mean Corpuscular HGB Conc 35 g/dL 31-36 Red Cell Distribution Width 14 % 10.5-15 Platelet Count 174 10^3/uL 150-450 Mean Platelet Volume 7 um3 Low 7.4-10.4 Abs Neutrophils 8.1 10^3/uL High 1.5-7.7 Abs Lymphocytes 0.4 10^3/uL Low 1.0-4.8 Abs Monocytes 0.3 10^3/uL 0-0.8 Abs Eosinophils 0 10^3/uL 0-0.6 Abs Basophils 0 10^3/uL 0-0.2 Abs Nucleated RBC 0.01 10^3/uL Granulocyte % 91.6 % High 38-83 Lymphocyte % 4.3 % Low 25-47 Monocyte % 3.9 % 1-9 Eosinophil % 0 % 0-6 Basophil % 0.2 % 0-2 Nucleated Red Blood Cells % 0.1 Laboratory test finding 05/14/2017 Lactic Acid 2.2 mmol/L High 0.5-2.0 14 Laboratory test finding 08/19/2016 Point of Care Glucose 114 mg/dL High 74 -106 15 Laboratory test finding 08/19/2016 Point of Care Glucose 111 mg/dL High 74 -106 16 Anca Panel For Vasculitis 03/28/2016 Myeloperoxidase AB <0.2 U 17 Proteinase 3 AB <0.2 U 18 Laboratory test finding 03/28/2016 Creatine Kinase(CK) 92 U/L 10-223 C Reactive Protein 8.59 mg/L High < 5.00 19 Cyclic Citrullinated Pep Igg <15.6 U 20 Rheumatoid Factor <15 IU/mL <15 21 Uric Acid 5.2 mg/dL 4.4-7.6 Angiotensin Converting Enzyme 30 U/L 8 - 53 22 Erythrocyte Sed Rate 28 mm/Hr 0-40 Protein Electrophoresis 03/28/2016 Total Protein(Pep) 7.1 g/dL 6.3 - 7.9 Albumin 3.3 g/dL 3.4-4.7 Alpha-1 Globulin 0.3 g/dL 0.1-0.3 Alpha-2 Globulin 1.3 g/dL 0.6-1.0 Beta Globulin 0.9 g/dL 0.7-1.2 Gamma Globulin 1.4 g/dL 0.6-1.6 Albumin/Globulin Ratio 0.86 Impression See Comment 23 Laboratory test finding 03/28/2016 TSH (Thyroid Stim Horm) 5.13 mcIU/mL 0.34-5.60 Vitamin B12 423 pg/mL 180-914 24 1 Undercutter Operator: [id number] 2 Undercutter Operator: [id number] 3 Because ethnic data is not always readily available, this report includes an eGFR for both -Americans and non- Americans. The National Kidney Disease Education Program (NKDEP) does not endorse the use of the MDRD equation for patients that are not between the ages of 18 and 70, are , have extremes of body size, muscle mass, or nutritional status, or are non- or non-. According to the National Kidney Foundation, irrespective of diagnosis, the stage of the disease is based on the level of kidney function: Stage Description GFR(mL/min/1.73 m(2)) 1 Kidney damage with normal or decreased GFR 90 2 Kidney damage with mild decrease in GFR 60-89 3 Moderate decrease in GFR 30-59 4 Severe decrease in GFR 15-29 5 Kidney failure <15 (or dialysis) 4 SEE RESULT BELOW Name: AVILA AGUILAR : [address]: Steve Cantu MD Acct: [id number] Unit: [id number] AGE: 81 Location: ENDO Re09/08/17 SEX: M Status: DEP REF SPEC: [id number] AMY: 09/08/17-[address] [facility] [address]: Steve Cantu MD REQ: [id number] RECD: 09/08/17052 STATUS: RHIANNA BERGER DR: Scotty Ozuna III, MD _ ORDERED: LEVEL 4/2, IMMUNO-FIRST FINAL DIAGNOSIS 1. Esophagus, at 38 cm, biopsy: -- Squamous and columnar mucosa with chronic inflammation and intestinal metaplasia. -- Dysplasia is absent. -- No evidence of malignancy. 2. Esophagus, at 36 cm, biopsy: -- Benign squamous mucosa with mild erosive changes and focal reactive fibrosis with muciphage deposition. -- No columnar component present for evaluation. -- No evidence of malignancy. COMMENT: Deeper levels of sectioning as well as a pankeratin immunohistochemical stain, with appropriately reacting controls, were performed in the evaluation of specimen 2 and support the diagnosis. CLINICAL HISTORY Dysphagia POST-OPERATIVE DIAGNOSIS Larynx ? symmetric; esophagus ? normal, esophagogastric 38 ? biopsy x4 at 38 (scarring); biopsy x3 at 36, no stricture; stomach and duodenum ? normal. Conclusions/ Plan: Scarring, history of esophageal cancer CONTINUED ON NEXT PAGE * ML=Testing performed at Main Lab DEPARTMENT OF PATHOLOGY, [address] [place] [address] Wilfredo Nava M.D. Director [facility] # [id number] RUN DATE: 09/11/17 [facility] LAB LIVE PAGE 2 Patient: AVILA AGUILAR Sera [id number] (Continued) GROSS DESCRIPTION (Continued) GROSS DESCRIPTION 1. The specimen is received in formalin labeled, Biopsy Esophagus at 38 cm , and consists of a 0.8 x 0.6 x 0.2 cm aggregate of speckled garcia-pink irregular to polypoid soft tissue fragments, which is entirely submitted in one cassette. 2. The specimen is received in formalin labeled, Biopsy Esophagus at 36 cm , and consists of three translucent white-pink irregular to polypoid soft tissue fragments ranging from 0.4 x 0.3 by up to 0.2 cm to 0.8 x 0.3 x 0.1 cm, which are entirely submitted in one cassette. Signed (signature on file) Sumaya Baker MD [id number] END OF REPORT * ML=Testing performed at Main Lab DEPARTMENT OF PATHOLOGY, [address] [place] [address] Wilfredo Nava M.D. Director [facility] # [id number] 5 Undercutter Operator: [id number] 6 Undercutter Operator: [id number] Undercutter Operator: [id number] 8 SEE RESULT BELOW Name: AVILA AGUILAR Sera : [address]: Emilee Santos MD Acct: [id number] Unit: [id number] AGE: 81 Location: [facility] Re09/01/17 SEX: M Status: REG REF SPEC: [id number] AMY: 09/01/17-[address] [facility] [address]: Emilee Santos MD REQ: [id number] RECD: 09/01/17 STATUS: LAURIE BERGER DR: Chuy Ozuna III, MD _ SOURCE: URINE [facility]: ORDERED: Urine Culture Procedure Result Reported Site Urine Culture Final 09/02/17- 1155 ML Organism 1 CHACE TROPICALIS [place] Count >100,000 (Many) CFU/ML * ML - MAIN LAB ([facility]) . END OF REPORT * ML=Testing performed at Main Lab DEPARTMENT OF PATHOLOGY, [address] [place] [address] Wilfredo Nava M.D. Director [facility] # [id number] 9 Specimen Lipemic. Result may not be valid. 10 Because ethnic data is not always readily available, this report includes an eGFR for both -Americans and non- Americans. The National Kidney Disease Education Program (NKDEP) does not endorse the use of the MDRD equation for patients that are not between the ages of 18 and 70, are , have extremes of body size, muscle mass, or nutritional status, or are non- or non-. According to the National Kidney Foundation, irrespective of diagnosis, the stage of the disease is based on the level of kidney function: Stage Description GFR(mL/min/1.73 m(2)) 1 Kidney damage with normal or decreased GFR 90 2 Kidney damage with mild decrease in GFR 60-89 3 Moderate decrease in GFR 30-59 4 Severe decrease in GFR 15-29 5 Kidney failure <15 (or dialysis) 11 Therapeutic target for the treatment of diabetes Mellitus patients is <7% HBA1C, and in selective patients <6.0%.Please refer to [place] Diabetes Association Diabetic care guidelines for further information. 12 SEE RESULT BELOW Name: ERICAVILA : [address]: Alma Olson MD Acct: [id number] Unit: [id number] AGE: 81 Location: ED Re05/14/17 SEX: M Status: REG ER SPEC: [id number] AMY: 05/14/[address]: Alma Olson MD REQ: [id number] RECD: 05/14/17 STATUS: LAURIE BERGER DR: Chuy Ozuna III, MD _ SOURCE: URINE SPDESC: ORDERED: Urine Culture Procedure Result Reported Site Urine Culture Final 05/16/17- 1503 ML Organism 1 CHACE TROPICALIS [place] Count 50-75,000 (Many) CFU/ML * ML - MAIN LAB ([facility]) . END OF REPORT * ML=Testing performed at Main Lab DEPARTMENT OF PATHOLOGY, [address] [place] [address] Wilfredo Nava M.D. Director [facility] # [id number] 13 Because ethnic data is not always readily available, this report includes an eGFR for both -Americans and non- Americans. The National Kidney Disease Education Program (NKDEP) does not endorse the use of the MDRD equation for patients that are not between the ages of 18 and 70, are , have extremes of body size, muscle mass, or nutritional status, or are non- or non-. According to the National Kidney Foundation, irrespective of diagnosis, the stage of the disease is based on the level of kidney function: Stage Description GFR(mL/min/1.73 m(2)) 1 Kidney damage with normal or decreased GFR 90 2 Kidney damage with mild decrease in GFR 60-89 3 Moderate decrease in GFR 30-59 4 Severe decrease in GFR 15-29 5 Kidney failure <15 (or dialysis) 14 Critical Result LACT:2.2 Called to [id number] at: 21:39:17 by:[id number] Read back by:[id number] [facility] Severe Sepsis and Septic Shock Management Bundle Measure requires all lactic acids initially measuring >2.0 mmol/L be repeated. 15 Undercutter Operator: [id number] Brock Shell 16 Undercutter Operator: [id number] EMIL KENDRICK 17 REFERENCE VALUE <0.4 (Negative) 18 REFERENCE VALUE <0.4 (Negative) Test Performed by: [place] [address] Bead Flipper: Dwayne Pavon II, M.D., Ph.D. 19 Acute inflammation: >10.00 20 REFERENCE VALUE <20.0 (Negative) Test Performed by: [place] [address] Bead Flipper: Dwayne Pavon II, M.D., Ph.D. 21 Test Performed by: [place] [address] Bead Flipper: Dwayne Pavon II, M.D., Ph.D. 22 Test Performed by: [place] [address] Bead Flipper: Dwayne Pavon II, M.D., Ph.D. 23 RESULT: No apparent monoclonal protein on serum electrophoresis. Test Performed by: [address], [place] [address] Bead Flipper: Dwayne Pavon II, M.D., Ph.D. 24 Normal Range 180 to 914 Indeterminate Range 145 to 180 Deficient Range <145 Procedures Date CPT Code Description Status 05/19/201812432 Inject/Drain Joint/Bursa Major W/O US Completed 02/10/201851479 Inject/Drain Joint/Bursa Major W/O US Completed 11/23/201726712 Inject/Drain Joint/Bursa Major W/O US Completed 11/09/201747448 Inject/Drain Joint/Bursa Major W/O US Completed 08/03/201719002 Inject/Drain Joint/Bursa Major W/O US Completed 08/19/2016 40368 Fluoroscopic Guidance For Cent Completed 08/19/2016 85985 Insertion Tunneled Cent Venous Cathr W Subcut Port 5 Completed Yrs Or Oldr 08/05/2016 99408 ECHO Transthorasic Realtime 2D W Doppler & Color Flow Completed Hosp 08/05/2016 38221 EKG, Interpretation Only Completed 01/30/2015 Colonoscopy Completed 01/14/2011 Colonoscopy Completed 03/30/2007 Colonoscopy Completed Encounters Type Date Location Provider CPT E/M Dx Office Visit 03/15/2018 1:00p [facility] Internal Medicine Alistair Delcid, 17411 E11.9 - Tbjarad Cota M.D. Z01.818 Office Visit 02/24/2018 2:00p [facility] Internal Medicine Chuy Ozuna, 76437 R21 - Mariano Armendariz Office Visit 01/18/2018 4:00p [facility] Internal Medicine Chuy Ozuna, 03374 R60.0 - Mariano Armendariz I10 E11.9 Office Visit 12/24/2017 9:45a [facility] [place] [address] S46.101A C.M.A. S46.111D Office Visit 12/23/2017 3:20p [facility] Internal Medicine Chuy Ozuna, 22901 M54.2 - Mariano Armendariz Office Visit 11/23/2017 2:30p [facility] Strickland M.D. 32853 M75.42 C.M.A. M19.012 M25.512 S46.012A Office Visit 10/27/2017 1:30p [facility] [place] [address] S46.101A C.M.ADavid M54.6 S46.111A Office Visit 10/20/2017 2:40p [facility] Internal Medicine Chuy Ozuna, 56371 M79.621 - Mariano Armendariz Office Visit 08/03/2017 2:30p [facility] M.D. 52796 M25.561 C.MDavidADavid M25.562 M25.461 M25.462 M17.0 Office Visit 07/16/2017 1:00p [facility] Chuy Ozuna, 58[address] E11.8 - Mariano Armendariz M25.569 Office Visit 04/15/2017 10:40a [facility] Chuy Ozuna, 66629 C15.4 - Mariano Armendariz E11.8 I10 Office Visit 08/18/2016 8:30a [facility] [place], [address] C15.4 [facility] FACS E11.8 I10 Office Visit 08/11/2016 11:40a [facility] Emilee Santos M.D. 98822 C15.4 Of [facility] [place] Z79.84 E11.42 H91.93 R63.4 Z72.89 Office Visit 08/06/2016 10:00a [facility], [place] [address] R55 Hospitalists E11.8 I10 Office Visit 08/05/2016 9:58a [facility], [place] [address] R55 Hospitalists E78.5 E11.8 Office Visit 08/04/2016 9:47a [facility], Jono Rosales, [address] R55 Hospitalists N.P. E78.5 E11.8 Office Visit 03/27/2016 4:00p [facility] Joseph Valera, 71492 E11.42 Of Phyllis Armendariz M15.0 E83.52 R79.82 M06.4 G62.9 Plan of Care Future Appointment(s):08/18/2018 11:00 am - Nelly Strickland M.D. at [facility]05/25/2018 8:00 am - Steve Cantu MD at [facility] Htstcwulbfoqchid83/05/2018 - Nelly Strickland M.D.M17.0 Bilateral primary osteoarthritis of kneeFollow up:Follow up: 3 emorgbZ54.562 Pain in left kneeM25.561 Pain in right kneeM25.462 Effusion, left kneeM25.461 Effusion, right knee
--- NOTE | 2018-06-02 11:28 | RAD ---
INDICATION: Chest pain and shortness of breath COMPARISON: Most recent comparison chest x-rays dated May 14, 2017 TECHNIQUE: Single AP portable view of the chest was obtained. FINDINGS: Image quality is compromised due to the relative inferiority of a portable chest x-ray. Again seen is a right subclavian vein Mediport with the tip terminating at the SVC. The heart and mediastinum exhibit normal size and contour. There has been interval appearance of densities obscuring the bilateral lung bases more severe on the right than the left. The pulmonary vasculature appears mildly engorged and indistinct. Visualized bones are normal for the patient's age. IMPRESSION: Chest x-ray findings are most consistent with pulmonary vascular congestion likely with right greater than left bibasilar pleural effusions.
[2018-06-02 12:02] LABS: ABS Basophils 0 10^3/ul (0-0.2); ABS Eosinophils 0 10^3/ul (0-0.6); ABS Lymphocytes 0.9 10^3/ul (1.0-4.8); ABS Monocytes 0.6 10^3/ul (0-0.8); ABS Neutrophils 7.5 10^3/ul (1.5-7.7); ABS Nucleated RBC 0 10^3/ul; Eosinophil % 0.2 % (0-6); Hematocrit 44 % (42-52); Hemoglobin 14.9 g/dl (14.0-18.0); Lymphocyte % 9.7 % (25-47); Mean Corpuscular HGB Conc 34 g/dl (31-36); Mean Corpuscular Hemoglobin 31 pg (27-31); Mean Corpuscular Volume 93 fL (80-94); Mean Platelet Volume 8.3 um3 (7.4-10.4); Nucleated Red Blood Cells % 0.2; Platelet Count 224 10^3/ul (150-450); Red Blood Count 4.75 10^6/ul (4.00-5.40); Red Cell Distribution Width 16 % (10.5-15); White Blood Count 9.1 10^3/ul (3.5-10.8)
--- NOTE | 2018-06-02 12:04 | ED ---
Shortness of Breath - HPI Summary HPI Summary: This patient is an 82 year old M presenting to [facility] with a chief complaint of SOB for the past few days, but with worse sx this AM. He endorses chest congestion and tightness (but denies CP), associated SOB, insomnia, recent weight gain, orthopnea, and baseline pedal edema since he became a diabetic. He states that this AM, he lay down and slept, then woke up panting and severely SOB. He denies PMHx CHF, COPD, asthma, ND, PE, DVT. PMHx DM. SHx feeding port for PMHx esophageal CA cured 2 years ago. Pt takes ASA. - History of Current Complaint Chief Complaint: EDChestPainROMI Time Seen by Provider: 06/02/18 10:51 Hx Obtained From: Patient Onset/Duration: Gradual Onset, Lasting Days, Still Present, Worse Since - this AM Timing: Constant Current Severity: Moderate Dyspnea At: Orthopena Aggrevating Factors: Recumbent Position Alleviating Factors: Upright Position Associated Signs & Symptoms: Edema - Allergy/Home Medications Allergies/Adverse Reactions: Allergies Allergy/AdvReac Type Severity Reaction Status Date / Time No Known Allergies Allergy Verified 04/12/18 11:20 Home Medications: Home Medications Acetaminophen TAB* [Tylenol TAB*] 650 mg PO DAILY PRN 06/02/18 [History Confirmed 06/02/18] Cholecalciferol TAB* [Vitamin D TAB*] 400 unit PO QAM 06/02/18 [History Confirmed 06/02/18] Glucosam/Ankit-Msm1/C/Mirza/Bosw [Osteo Bi-Flex Advanced Tr] 1 tab PO DAILY [History Confirmed 06/02/18] Tamsulosin CAP* [Flomax CAP*] 0.4 mg PO DAILY 06/02/18 [History Confirmed ] Valsartan TAB* [Diovan TAB*] 320 mg PO QAM 06/02/18 [History Confirmed 06/02/18] metFORMIN* [Glucophage 500 MG TAB *] 1,000 mg PO QPM 06/02/18 [History Confirmed 06/02/18] metFORMIN* [Glucophage 500 MG TAB *] 500 mg PO QAM 06/02/18 [History Confirmed 06/02/18] PMH/Surg Hx/FS Hx/Imm Hx Endocrine/Hematology History: Reports: Hx Diabetes Cardiovascular History: Reports: Hx Hypercholesterolemia, Hx Hypertension Denies: Hx Deep Vein Thrombosis, Hx Myocardial Infarction Respiratory History: Denies: Hx Asthma, Hx Chronic Obstructive Pulmonary Disease (COPD), Hx Pulmonary Embolism, Other Respiratory Problems/Disorders GI History: Reports: Hx Gastroesophageal Reflux Disease, Hx Hiatal Hernia, Other GI Disorders - Gi "issues" History: Denies: Hx Renal Disease Musculoskeletal History: Reports: Hx Arthritis, Hx Tendonitis - right arm Sensory History: Reports: Hx Cataracts - mel, Hx Contacts or Glasses - not with the pt, Hx Glaucoma - controlled, Hx Hearing Aid - bilat, only wears 1, Other Sensory Impairments - LOWER BRULE; does not have hearing aides with him Opthamlomology History: Reports: Hx Cataracts - mel, Hx Contacts or Glasses - not with the pt, Hx Glaucoma - controlled, Other Sensory Impairments - LOWER BRULE; does not have hearing aides with him Neurological History: Reports: Other Neuro Impairments/Disorders - diabetic neuropathy fingers and feets Psychiatric History: Denies: Hx Schizophrenia - Cancer History Cancer Type, Location and Year: ESOPHAGUS 2016 Hx Chemotherapy: Yes - Surgical History Surgery Procedure, Year, and Place: APPENDECTOMY Hx Anesthesia Reactions: No - Immunization History Immunizations Up to Date: Yes Infectious Disease History: No Infectious Disease History: Denies: Traveled Outside the [place] in Last 30 Days - Family History Known Family History: Positive: Cardiac Disease - Father of ND at age of 65 - Social History Occupation: Retired Lives: With Family Alcohol Use: Weekly Alcohol Amount: approx 1 beer per month Substance Use Type: Reports: None Hx Tobacco Use: Yes Smoking Status (MU): Former Smoker Amount Used/How Often: 2 packs a day 40 yrs Review of Systems Positive: Other - recent weight gain, insomnia. Negative: Fever Positive: Other - chest congestion and tightness. Negative: Chest Pain Positive: Shortness Of Breath Positive: no symptoms reported Positive: Edema All Other Systems Reviewed And Are Negative: Yes Physical Exam - Summary Physical Exam Summary: GENERAL: Patient is a well-developed and nourished M who is lying comfortable in the stretcher. Patient is not in any acute respiratory distress. HEAD AND FACE: Normocephalic EYES: PERRLA, EOMI x 2. EARS: Hearing grossly intact. MOUTH: Oropharynx within normal limits. NECK: Supple, trachea is midline, no adenopathy, no JVD, no carotid bruit. CHEST: Symmetric, no tenderness at palpation LUNGS: No wheezing, crackles in the right lung base CVS: Regular rate and rhythm, S1 and S2 present, no murmurs or gallops appreciated. ABDOMEN: Soft, non-tender. Bowel sounds are normal. No abdominal abnormal pulsations. EXTREMITIES: Full ROM in all major joints, 3+ pitting edema, no cyanosis or clubbing. NEURO: Alert and oriented x 3. No acute neurological deficits. Speech is normal and follows commands. SKIN: Dry and warm Triage Information Reviewed: Yes Vital Signs On Initial Exam: Initial Vitals Temp Pulse Resp BP Pulse Ox 97.2 F 110 20 142/93 92 06/02/18 10:22 06/02/18 10:22 06/02/18 10:22 06/02/18 10:22 06/02/18 10:22 Vital Signs Reviewed: Yes Diagnostics - Vital Signs Vital Signs Temp Pulse Resp BP Pulse Ox 06/02/18 11:00 104 26 94 06/02/18 10:48 107 26 138/93 93 06/02/18 10:22 97.2 F 110 20 142/93 92 - Laboratory Result Diagrams: 06/05/18 05:00 06/05/18 05:00 Lab Statement: Any lab studies that have been ordered have been reviewed, and results considered in the medical decision making process. - Radiology CXR Xray Interpretation: Positive (See Comments) Radiology Interpretation Completed By: Radiologist - Chest x-ray findings are most consistent with pulmonary vascular congestion likely with right greater than left bibasilar pleural effusions. Dr. Darden has reviewed this report. - CT CTA chest CT Interpretation: Positive (See Comments) CT Interpretation Completed By: Radiologist - No definite pulmonary embolus is noted. The aorta demonstrates no evidence of aortic dissection. There is moderate to large bilateral pleural effusions greater on the right than on the left. Bibasal atelectasis and crowding of the vascular markings are noted. Hepatic steatosis with hepatic cysts are noted. Likely cholelithiasis is noted. Dr. Darden has reviewed this report. - EKG 1041 Cardiac Rate: Tachycardia - 108 EKG Rhythm: Sinus Tachycardia ST Segment: Normal Ectopy: PACs EKG Interpretation: RBBB, LAFB EKG Comparison: No Significant Change Course/Dx - Course Course Of Treatment: An 82-year-old M presents to the ED with a CC of SOB for a few days but at its worst this AM. (+) orthpnea, chest congestion and tightness , insominia, recent weight game, and baseline pedal edema. (-) CP. PMHx DM, "cured" esophageal CA 2 years ago. He denies PMHx PE, DVT, ND, CHF, asthma, COPD. A CXR reveals findings that are most consistent with pulmonary vascular congestion likely with right greater than left bibasilar pleural effusions. An EKG reveals sinus tachycardia at 108 BPM, PACs, RBBB, LAFB. A CTA chest reveals no definite pulmonary embolus is noted. The aorta demonstrates no evidence of aortic dissection. There is moderate to large bilateral pleural effusions greater on the right than on the left. Bibasal atelectasis and crowding of the vascular markings are noted. Hepatic steatosis with hepatic cysts are noted. Likely cholelithiasis is noted. In the ED course, pt was given ASA, lasix, and contrast. Pt shows a trop of 0.67, abnl K+, CRP, BNP, APTT, RDW, and lymph %. Case discussed with hospitalist. I discussed results with patient. The patient agrees with this plan. - Diagnoses Provider Diagnoses: Shortness of breath - Physician Notifications Discussed Care of Patient With: Mariano Mckeon Time Discussed With Above Provider: 13:10 Instructed by Provider To: Other - Accepts admission. - Critical Care Time Critical Care Time: 30-74 min Discharge - Sign-Out/Discharge Documenting (check all that apply): Patient Departure - admit - Discharge Plan Condition: Fair Disposition: ADMITTED TO [facility] - Billing Disposition and Condition Condition: FAIR Disposition: Admitted to [facility] - Attestation Statements Document Initiated by Michoacanoibe: Yes Documenting Scribe: Zackery Connelly Provider For Whom Andre is Documenting (Include Credential): Dr. Liz Darden MD Scribe Attestation: Zackery Fairbanks scribed for Dr. Liz Darden MD on 06/05/18 at 0727. Scribe Documentation Reviewed: Yes Provider Attestation: The documentation as recorded by the Zackery wynne accurately reflects the service I personally performed and the decisions made by me, Dr. Liz Darden MD
[2018-06-02 12:11] LABS: INR 1.02 (0.77-1.02)
[2018-06-02 12:30] LABS: EGFR Non-African American 77.8 (>60)
[2018-06-02] MEDS ORDERED: Aspirin 81 mg CHEW TAB* 81 MG TAB.CHEW PO ONE (12:57)
[2018-06-02] MEDS ORDERED: Furosemide IV* 10 MG/ML VIAL (40 MG) IV ONE (12:57)
[2018-06-02] MEDS ORDERED: Iodixanol* (CONTRAST) 320 MG/ML 100 ML SDV IV ONE (13:00)
--- NOTE | 2018-06-02 14:07 | RAD ---
Indication: Shortness of breath. Contrast: Administered 92.0 ml of VISAPAQUE 320 mg/ml CTA of the chest performed after IV contrast administration. Coronal and sagittal reconstructed images were obtained. The pulmonary arterial tree is well opacified. There are no filling defects present to suggest pulmonary embolus. The heart demonstrates no pericardial effusion. Inferior thyroid lobes demonstrates right paratracheal lymph nodes measuring 12 mm. Precarinal lymph nodes measuring up to 9 mm and 10 mm. Other precarinal node measures up to 9 mm. Small 3 to 5 mm AP window lymph nodes are noted. The heart demonstrates no pericardial effusion. There is moderate to large bilateral pleural effusions slightly worse on the right than on the left. There is crowding of the lung markings likely due to atelectasis. No definite masses identified although evaluation is limited due to atelectasis. The liver demonstrates diffuse decrease in density consistent with hepatic steatosis. There is likely right lobe hepatic cyst. Incidentally noted is cholelithiasis. The remainder of the abdominal organs are unremarkable. Evaluation of the bony structures demonstrates no definite compression although multilevel degenerative disc disease is noted. IMPRESSION: No definite pulmonary embolus is noted. The aorta demonstrates no evidence of aortic dissection. There is moderate to large bilateral pleural effusions greater on the right than on the left. Bibasal atelectasis and crowding of the vascular markings are noted. Hepatic steatosis with hepatic cysts are noted. Likely cholelithiasis is noted.
[2018-06-02] MEDS ORDERED: Acetaminophen TAB* 325 MG PO PRN (14:32)
[2018-06-02] MEDS ORDERED: Al Hydrox/Mg Hydrox/Simet LIQ* 30 ML UDC PO PRN (14:32)
[2018-06-02] MEDS ORDERED: Ondansetron INJ* 2 MG/ML VIAL IV PRN (14:32)
[2018-06-02] MEDS ORDERED: Dextrose 50% Syringe 50 ML* 25 GM/50 ML SYRINGE IV PUSH PRN (14:39)
[2018-06-02] MEDS ORDERED: Potassium Chlor TAB* 20 MEQ TAB.ER PO ONE ×4 (17:01→23:30)
[2018-06-02] MEDS: Insulin LISPRO* 1 UNITS UNIT SUBCUT SCH ×2 (17:24→21:41)
[2018-06-02] MEDS: Latanoprost 0.005%* 2.5 ml BTL BOTH EYES SCH (17:27)
--- NOTE | 2018-06-02 17:32 | ECHO ---
Patient: MAHNAZ REYES [facility] Rec#: [id number] : 1935 Date: 06/02/2018 Age: 82y Height: 177.8 cm / 70.0 in Weight: 112.49 kg / 247.9 lbs Sex: M BSA: 2.29 Room#: -8 Admit Date#: 06/02/2018 Type: Inpatient Referring: Joss Alex Reading: Sadaf Olivas MD Remediation Consultant: Piedad aLyton BUD CC: Chuy Ozuna MD Transthoracic Echocardiogram Indication: SOB BP: 141/92 HR: 108 Rhythm: NSR Findings History: Esophageal cancer s/p chemo and radiation, DM,HLD,HTN,smoker. Technical Comments: The study is technically limited due to patient body habitus. Completed at 1639. The study is technically limited due to the patient's smoking history. Left Ventricle: Mild concentric left ventricular hypertrophy is observed. There is severely decreased left ventricular systolic function.Very apex has a bit of contractility, the rest of the myocardium worse. The estimated ejection fraction is 20-25%. The left ventricular diastolic filling pattern is restrictive. The left ventricular diastolic filling pattern is consistent with elevated left ventricular end-diastolic pressure. Left Atrium: The left atrium is moderately dilated. Right Ventricle: The right ventricular cavity size is normal. The right ventricular global systolic function is low normal. Right Atrium: The right atrial cavity size is normal. Aortic Valve: The aortic valve leaflets are mildly thickened. As they appear in the A5C view. Unable to comment on leaflets from SAX. There is mild aortic regurgitation. There is no evidence of aortic stenosis. Mitral Valve: The mitral valve leaflets are mildly thickened. There is moderate mitral regurgitation. There is no evidence of mitral stenosis. Tricuspid Valve: The tricuspid valve leaflets are normal. There is moderate tricuspid regurgitation. The right ventricular systolic pressure is estimated at 46 mmHg. There is evidence of mild to moderate pulmonary hypertension. There is no tricuspid stenosis. Pulmonic Valve: The pulmonic valve appears normal. There is no evidence of pulmonic regurgitation. There is no pulmonic stenosis. Pericardium: A pericardial effusion is visualized. There is a small pericardial effusion.A4C@ RA measured 1.6cm with RA invagination. There are no signs of significant hemodynamic compromise.MV inflow 17% change,LVOT 3% change TV inflow 15% change. A left pleural effusion is present. There is a moderate pleural effusion. Aorta: There is no dilatation of the ascending aorta. There is no dilatation of the aortic arch. There is no dilation of the aortic root. Pulmonary Artery: The main pulmonary artery appears normal. Venous: The venous system is not well visualized. Conclusions Mild concentric left ventricular hypertrophy is observed. There is severely decreased left ventricular systolic function.Very apex has a bit of contractility, the rest of the myocardium worse. The estimated ejection fraction is 20%. The left ventricular diastolic filling pattern is restrictive with elevated LVEDP. The right ventricular runction is low normal. The left atrium is moderately dilated. There is mild aortic regurgitation. There is moderate mitral regurgitation. There is moderate tricuspid regurgitation. There is evidence of mild to moderate pulmonary hypertension. The right ventricular systolic pressure is estimated at 46 mmHg. There is a small pericardial effusion. There are no signs of significant hemodynamic compromise. A left pleural effusion is present. Compared with prior echo of 08/05/16, EF has decreased from 50-55%, AI is new, MR and TR have progressed from trace, pulmonary hypertension is new. Pericardial and pleural effusions are new. Measurements Name Value Normal Range RVIDd (AP) 2D 2.7 cm (0.9 - 2.6) RVDdMajor (2D) 3 cm (2.2 - 4.4) RAd ISD 4CH 4.7 cm (3.4 - 4.9) RA (A4C)W 2.9 cm (2.9 - 4.6) IVSd (2D) 1.2 cm (0.6 - 1) LVPWd (2D) 1.1 cm (0.6 - 1) LVIDd (2D) 5.2 cm (3.6 - 5.4) LVIDs (2D) 3.9 cm - LV FS (2D) 25 % (25 - 45) Aortic Annulus 2.1 cm (1.4 - 2.6) Ao root diameter (2D) 3.1 cm (2.1 - 3.5) Ascending Ao 3.3 cm (2.1 - 3.4) Aortic arch 2.4 cm (1.8 - 3.4) Descending Ao 0.4 cm - LA dimension (AP) 2D 4.8 cm (2.3 - 3.8) LAd ISD 4CH 5.5 cm (2.9 - 5.3) LA ISD 4CH W 3.3 cm (2.5 - 4.5) Name Value Normal Range LA ESV SP 4CH (A/L) 38 ml - LA ESV SP 2CH (A/L) 91 ml - LA ESV BP (A/L) 64 ml - LA ESV BP (A/L) index 27.94 ml/m2 - LA ESV SP 4CH (MOD) 37 ml - LA ESV SP 2CH (MOD) 88 ml - Name Value Normal Range MV E-wave Vmax 1.3 m/sec - MV deceleration time 107 msec - LV septal e' Vmax 0.08 m/sec - LV lateral e' Vmax 0.08 m/sec - LV E:e' septal ratio 16.25 ratio - LV E:e' lateral ratio 16.25 ratio - Name Value Normal Range AV Vmax 1.1 m/sec - AV VTI 16.2 cm - AV peak gradient 4.95 mmHg - AV mean gradient 2.22 mmHg - LVOT Vmax 0.8 m/sec - LVOT VTI 11.67 cm - LVOT peak gradient 2.3 mmHg - LVOT mean gradient 1.19 mmHg - AR PHT 283 msec - AR peak gradient 32.66 mmHg - Name Value Normal Range MR Vmax 4.6 m/sec - MR VTI 124 cm - Name Value Normal Range TR Vmax 3.1 m/sec - TR peak gradient 38 mmHg - RAP 8 mmHg - RVSP 46 mmHg - Name Value Normal Range PV Vmax 0.5 m/sec - PV peak gradient 1.03 mmHg -
[2018-06-02] MEDS ORDERED: Morphine INJ* 2 MG/ML 1 ML SYRINGE (TWO MG - NEW SYRINGE VERSION) IV PRN (17:45)
[2018-06-02] MEDS ORDERED: Nitroglycerin TAB 0.4 MG* 0.4 MG TAB SL PRN (17:46)
[2018-06-02] MEDS ORDERED: Insulin GLARGINE(*) 1 UNITS UNIT SUBCUT SCH (18:00)
[2018-06-02] MEDS ORDERED: Heparin DRIP 25,000 UNITS(*) 25,000 UNITS/500 ML BAG IV SCH (18:15)
[2018-06-02] MEDS: Heparin VIAL(*) 5000 UNITS/ML VIAL (FIVE THOUSAND) IV PRN (19:15)
--- NOTE | 2018-06-02 20:28 | HP ---
CC: Dr. Chuy Ozuna * ADMISSION HISTORY AND PHYSICAL: DATE OF ADMISSION: 06/02/18 PATIENT OF ATTENDING HOSPITALIST: Dr. Mariano Mckeon.* (DICTATED BY PACHECO AMANDA) PRIMARY CARE PROVIDER: Dr. Chuy Ozuna. CHIEF COMPLAINT: Shortness of breath. HISTORY OF PRESENT ILLNESS: Mr. Aguilar is an 82-year-old gentleman with past medical history significant for esophageal cancer, for which he had chemotherapy and has been in remission for the past 2 years, as well as history of hypertension, diabetes mellitus, and benign prostatic hypertrophy, who presented to the emergency room today with 2 to 3 days history of worsening shortness of breath. The patient notes that he usually takes short walks around his neighborhood without any issues lately. 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 He noticed significant shortness of breath 2 days ago after he took that walk and he needed to sit down and rest. He denied any associated substernal chest pain, diaphoresis, dizziness, weakness, or syncope. He had a hard time catching up with his breath and noticed some wheezing; however, all symptoms resolved upon rest. His shortness of breath has gotten progressively worse and now presented with orthopnea and unable to lay down flat on his back last night. He denied any calf pain, swelling, or history of DVT or PE. The patient was evaluated in the emergency room and was noted to have elevated troponin of 0.67. The patient denies any history of SD; however, he has significant family history of coronary artery disease in his father and all his 10 siblings. He was also noted to have elevated BNP as well as a chest x-ray with bilateral pleural effusion consistent with CHF exacerbation. Given his symptoms, CTA of the chest was performed and ruled out any possibility of pulmonary embolism. The patient was given a dose of Lasix in the emergency room with some improvement noted to his breathing. We were asked to see the patient for further evaluation and to consider admission to hospitalist service. PAST MEDICAL HISTORY: As mentioned above, significant for: 1. History of esophageal cancer with chemotherapy and has been in remission for the past 2 years. 2. Hypertension. 3. Diabetes mellitus. 4. Benign prostatic hypertrophy. 5. Morbid obesity. PAST SURGICAL HISTORY: Significant for an appendectomy. CURRENT MEDICATIONS: His medications at home include: 1. Tylenol 650 mg p.o. daily. 2. Vitamin C 500 mg p.o. daily. 3. Calcium carbonate 500 mg p.o. daily. 4. Vitamin D 400 units p.o. daily. 5. Glucosamine/chondroitin 1 tablet p.o. daily. 6. Insulin Lantus 40 units subcu q.p.m. 7. Xalatan eye drops 0.005% one drop in both eyes once daily. 8. Metformin 1000 mg p.o. q.a.m. and 500 mg p.o. q.a.m. 9. Potassium chloride 10 mEq p.o. daily. 10. Flomax 0.4 mg p.o. daily. 11. Diovan 320 mg p.o. q.a.m. ALLERGIES: He has no known drug allergies. FAMILY HISTORY: Reviewed and significant for coronary artery disease in his father and his siblings. SOCIAL HISTORY: The patient is a former smoker, who quit in 1999. He denies alcohol consumption. His , Arianne, is his healthcare proxy carrier as well as his 2 sons. He is retired, lives at home with his . He wishes to be a full code. REVIEW OF SYSTEMS: See HPI. Otherwise, 14 points review of systems were evaluated and they were essentially negative. PHYSICAL EXAMINATION GENERAL: He is an obese, elderly gentleman, appears comfortable and in no acute distress or discomfort at the time of admission. VITAL SIGNS: Revealed temperature of 97.2, pulse of 114, blood pressure 154/103 , respirations of 20 with O2 sat of 92% on room air. HEENT: Head is normocephalic, atraumatic. Sclerae anicteric. PERRLA. EOMs intact. Oropharynx is pink and moist. NECK: Supple. Trachea midline. No cervical adenopathy, thyromegaly, or JVD. LUNGS: Clear to auscultation bilaterally. HEART: Regular rate and rhythm. Normal S1 and S2 without rubs, murmurs, or gallops. ABDOMEN: Round and mildly distended. There is no tenderness. There is an old epigastric scar from prior G-tube noted. No discharge or erythema. There is a small reducible umbilical hernia without tenderness or incarceration noted. BACK: With normal curvature and no CVA tenderness. EXTREMITIES: With 2+ edema bilaterally. NEUROLOGIC: He is awake, alert, and oriented x4. His handgrip is equal bilaterally. Tongue is midline and sensation is intact throughout. RECTAL: Exam deferred at this time. LABORATORY WORKUP: CBC with white count of 9000, hemoglobin of 14.9, hematocrit of 44, and platelets of 224. His chemistry panel with sodium of 138 , potassium 3.4, CO2 of 26, chloride 105, BUN of 13, and creatinine of 0.9. His glucose is 115. LFTs within normal limits. Troponin elevated at 0.67. C- reactive protein is 6.5 and BNP 377. ACCESSORY DIAGNOSTIC DATA: Chest x-ray with evidence of pulmonary congestion and right greater than left bibasilar pleural effusion. CTA of the chest was low probability for pulmonary embolism. IMPRESSION: An 82-year-old gentleman with past medical history significant for hypertension, diabetes mellitus, and esophageal cancer, for which he had chemotherapy and has been in remission for the past 2 years, who presented to the emergency room with 2 to 3 days history of worsening dyspnea on exertion and found to have congestive heart failure exacerbations, for which he will be admitted under hospital services for the following. ASSESSMENT AND PLAN: 1. Congestive heart failure exacerbation. The patient appears to be clinically stable at this point. He noticed some improvement in his breathing after taking 40 mg of Lasix in the emergency room. We will continue to observe him closely in the telemetry unit with strict intakes and outputs. I will also obtain daily weights and limit his sodium intake. He has an elevated troponin of 0.67 with no prior history of coronary artery disease and he currently has no complaints of chest pain; however, I will trend his troponin and hold off to do any stress test tomorrow. I suspect this is likely secondary to a demand ischemia and hopefully resolve once his congestive heart failure is controlled. I will obtain a transthoracic echocardiogram. His last study was done back in 2009. I discussed the case with my attending, Dr. Mckeon, who agreed that stress test will be on hold and can be done as an outpatient, but we will continue to trend troponin and check his EKG in the morning. 2. Hypertension. We will continue his Diovan. 3. Diabetes mellitus. We will continue his Lantus insulin every night and we will cover him with lispro sliding scale. 4. Benign prostatic hypertrophy. We will continue his daily Flomax at home dose. 5. Morbid obesity. Supportive care. 6. DVT prophylaxis: The patient is high risk and will be covered with heparin subcu every 8 hours. 7. Code status: He is a full code. TIME SPENT: Approximately 60 minutes spent admitting this patient with greater than 50% on taking history and performing physical exam. I went on and discussed the case with my attending, who agreed to plan of care. PACHECO AMANDA [id number]/[facility] #: [id number] MTDD
[2018-06-02] MEDS: Metoprolol Tartrate TAB* 25 MG PO SCH (21:05)
[2018-06-02] MEDS: Atorvastatin* 40 MG TAB PO SCH (21:05)
[2018-06-02] MEDS ORDERED: Furosemide IV* 10 MG/ML 2 ML VIAL (20 MG) IV ONE (21:23)
[2018-06-02] MEDS ORDERED: Heparin VIAL(*) 5000 UNITS/ML VIAL (FIVE THOUSAND) SUBCUT SCH (22:00)
[2018-06-02] MEDS ORDERED: nitroGLYCERIN DRIP* 25,000 MCG/250 ML BTL IV SCH (22:00)
[2018-06-02 22:13] LABS: EGFR Non-African American 73.2 (>60)
[2018-06-02] MEDS ORDERED: Morphine VIAL* 4 MG/ML VIAL (1 ml vial) IV PRN (22:40)
[2018-06-02] MEDS ORDERED: Magnesium Sulfate IV* 3 GM in NS 0.9% 100 ML* 100 ML IVPB ONE (22:50)
--- NOTE | 2018-06-02 23:13 | PN ---
Progress Note - Progress Note Date of Service: 06/02/18 Note: Paged - patient acutely tachpyneic with diaphoresis. Faint crackles on exam. No CP. EKG no change. Glucose >100. Just received lasix. Replacing Mg and K. Bladder scan >500 cc - placing hemphill. On NTG drip currently. Will place on vapotherm for now.
[2018-06-02 23:32] LABS: EGFR Non-African American 76.8 (>60)
--- NOTE | 2018-06-02 23:39 | CONS ---
CC: Hospitalist Service; Dr. Chuy Ozuna * CARDIOLOGY CONSULTATION: DATE OF CONSULT: 06/02/18 REASON FOR CONSULT: Congestive heart failure and depressed ejection fraction. HISTORY OF PRESENT ILLNESS: Mr. Aguilar is an 82-year-old with atherosclerotic risk, but no prior cardiac history. The patient presented to the emergency department today because of shortness of breath. He states he is a bit vague, but for at least a week and possibly longer, he has been getting short of breath on exertion. The patient is very clear that a week ago, he was walking up his neighbor's driveway and became profoundly winded and had to rest in the chair on his deck for about 15 minutes. This resolved, he walked home, and he has continued to have exertional dyspnea. Additionally, he has clear orthopnea where he feels as if he is huffing when he lies flat at night. The patient denies ever having had chest pain, pressure, heaviness, arm, neck, jaw discomfort or pressure. He denies nausea or diaphoresis. He denies any flu -like symptoms. The patient's workup through the emergency room today shows mild elevation in troponins. His CT angiogram negative for pulmonary embolus and an echocardiogram showing severe global hypokinesis and ejection fraction of 20% ( new drop). PAST MEDICAL HISTORY: The patient has a past medical history of: 1. Hypertension. 2. Adult-onset diabetes. 3. Morbid obesity. 4. Esophageal cancer, status post chemotherapy (type unknown) in remission for 2 years. 5. Benign prostatic hypertrophy. 6. Hyperlipidemia. PAST SURGICAL HISTORY: Includes appendectomy. MEDICATIONS: Outpatient medications included: 1. Diovan 325 mg a day. 2. Flomax 0.4 mg a day. 3. Potassium 10 mEq a day. 4. Metformin 1000 mg in the morning, 500 mg at night. 5. Insulin. 6. Glucosamine/chondroitin. 7. Vitamin D. 8. Calcium carbonate. 9. Vitamin C. 10. Tylenol p.r.n. ALLERGIES: The patient has no known drug allergies. FAMILY HISTORY: Significant that his father in his 60s of heart attack and multiple family members on his father's side have a history of coronary disease. His mother lived to be very old and of old age. He has a brother who is alive and healthy. 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 He stopped smoking in 1999. No history of alcohol use or abuse and no history of recreational drug use. REVIEW OF SYSTEMS: As above. No recent fevers, chills, sweats. No viral illnesses. He denies any weight gain or weight loss. He has taken some over- the- counter pain medication. He cannot remember to see if what make him feel better in the recent week. He denies recent travel. He denies recent chest pain, pressure, heaviness, arm, neck, jaw pain, or other anginal equivalents. It is positive for at least a week of exertional dyspnea and orthopnea and possibly longer exertional dyspnea. No change in bowel or bladder habits. No hematuria or dysuria and all other 14-point review of systems was negative. PHYSICAL EXAM: The patient is 5 feet 8 inches, weighs 243 pounds with a BMI of 37. Vitals: At the time I saw him, blood pressure 134/68, sinus tachycardia 105 beats a minute, respiratory rate was 22, oxygen saturation on room was 95. General Appearance: Morbidly centripetally obese, elderly gentleman, sitting at the edge of the bed, extremely tachypneic, and grabbing his calf because it is cramping. He appears in distress. Psychologically, pleasant and trying to be cooperative. Neurologically, awake, alert, and oriented to person, place, and time. Grossly normal sensory and motor function in the upper and lower extremities on the bed. Skin: Warm, dry, limbs dark, and nail beds and lips are pale, little dusky. No rashes. HEENT: Mucous membranes moderately moist. Neck: Thick from obesity without obvious thyromegaly, lymphadenopathy, or bruits. Hard to evaluate JVP. Breath sounds have crackles in the bases and heard in the upper lung painting as well. Coronary: S1, S2 regular, but tachycardic. Hard to hear S3 or S4 as it is hard for him to hold his breath. Abdomen: Rotund, nontender. Lower extremities show mild edema. DIAGNOSTIC STUDIES/LAB DATA: Chest x-ray done 11:00 this morning shows pulmonary vascular congestion and bilateral pleural effusions. Echocardiogram done 3 p.m. showed an ejection fraction of 20% with restrictive diastolic filling, mild aortic insufficiency, moderate mitral insufficiency, moderate tricuspid insufficiency, PA pressure 46 mmHg, small pericardial effusion, and compared with an echo of almost 2 years ago, July 2016, the ejection fraction had decreased from normal 50% to 55%. Valvular insufficiency, effusions and elevated PA pressures are new. A 12-lead ECG today shows sinus tachycardia 108 beats a minute with left axis deviation and right bundle-branch block. 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 He has lost his first R-wave raising the possibility of anterior wall myocardial infarction and he has some ST depression in precordial lead V3 and the tachycardia is new. Labs: White count 9.1, hemoglobin 14.9, hematocrit of 44, platelets 224. INR 1.02, PTT 38. Sodium 138, potassium 3.4, chloride 104, bicarb 26, BUN 13, creatinine 1.93, glucose 115. AST 27, ALT 35. Troponin #1, 0.67; troponin #2, 0.85; troponin #3, 0.74. C-reactive protein 6.53. BNP of 377. IMPRESSION AND PLAN: In summary, Mr. Aguilar is an 82-year-old gentleman, admitted with congestive heart failure with a severe cardiomyopathy. His onsets relatively recent and the depressed ejection fraction is new from July 2016. Mr. Aguilar has atherosclerotic risks of diabetes, hypertension, dyslipidemia, family history of early atherosclerotic heart disease, morbid obesity. His ECGs with loss of initial R-waves with persistence of R prime could represent an old anterior wall SC that I also have concerns that he could have 3 -vessel disease with stunned or hibernating myocardium. I have recommended we get a cardiac catheterization to determine state of his vasculature and see if he is a candidate for revascularization. He is a very high risk patient with his depressed ejection fraction. Currently, his congestive heart failure is significant and I feel we need to be more aggressive treating this and then I give additional Lasix, his potassium is likely low and this could be contributing to his cramping and I give him additional potassium and recheck his electrolytes tonight. I am going to start him on a nitroglycerin drip with oxygen to improve his tachypnea, and we will continue him on unfractionated heparin, low-dose beta- bertha, his current RAFAEL inhibitors, and statin. Additional recommendations will be made pending his response to the above measures overnight and results of his cardiac catheterization. A freestanding general labor if necessary, we would transfer him to a center with cardiothoracic surgery backup and have reviewed with vehicle painter and we will coordinate care. [id number]/[facility] #: [id number] RODRÍGUEZ
[2018-06-03] MEDS: Heparin VIAL(*) 5000 UNITS/ML VIAL (FIVE THOUSAND) IV PRN (01:46)
[2018-06-03 06:07] LABS: ABS Basophils 0.1 10^3/ul (0-0.2); ABS Eosinophils 0 10^3/ul (0-0.6); ABS Monocytes 0.9 10^3/ul (0-0.8); ABS Neutrophils 8.3 10^3/ul (1.5-7.7); ABS Nucleated RBC 0 10^3/ul; Eosinophil % 0.3 % (0-6); Hematocrit 45 % (42-52); Hemoglobin 15.4 g/dl (14.0-18.0); Lymphocyte % 9.9 % (25-47); Mean Corpuscular HGB Conc 34 g/dl (31-36); Mean Corpuscular Hemoglobin 32 pg (27-31); Mean Corpuscular Volume 93 fL (80-94); Mean Platelet Volume 8.5 um3 (7.4-10.4); Nucleated Red Blood Cells % 0.2; Platelet Count 234 10^3/ul (150-450); Red Blood Count 4.81 10^6/ul (4.00-5.40); Red Cell Distribution Width 16 % (10.5-15); White Blood Count 10.3 10^3/ul (3.5-10.8)
[2018-06-03 06:26] LABS: EGFR Non-African American 77.8 (>60)
[2018-06-03] MEDS: Tamsulosin CAP* 0.4 MG PO SCH (08:23)
[2018-06-03] MEDS: Potassium Chlor TAB* 10 MEQ TAB.ER PO SCH (08:23)
[2018-06-03] MEDS: Ascorbic Acid TAB* 500 MG PO SCH (08:23)
[2018-06-03] MEDS: Metoprolol Tartrate TAB* 25 MG PO SCH ×2 (08:23→21:45)
--- NOTE | 2018-06-03 08:51 | PN ---
Subjective Date of Service: 06/03/18 Interval History: Pt had noted SOB x month now with increased abd girth and leg edema Objective Active Medications: Acetaminophen (Tylenol Tab*) 975 mg PO Q4H PRN PRN Reason: FEVER/PAIN Al Hydrox/Mg Hydrox/Simethicone (Maalox Plus*) 30 ml PO Q6H PRN PRN Reason: INDIGESTION Albuterol (Ventolin 2.5 Mg/3 Ml Neb.Francy*) 2.5 mg INH [id number] AWAKE PRN PRN Reason: sob/wheezing Ascorbic Acid (Vitamin C Tab*) 500 mg PO QAM [facility] Last Admin: 06/03/18 08:23 Dose: 500 mg Aspirin (Aspirin Tab*) 325 mg PO DAILY [facility] Last Admin: 06/03/18 08:23 Dose: 325 mg Atorvastatin Calcium (Lipitor*) 40 mg PO 2100 [facility] Last Admin: 06/02/18 21:05 Dose: 40 mg Dextrose (D50w Syringe 50 Ml*) 12.5 gm IV PUSH .FOR FS < 60 - SS PRN PRN Reason: FS < 60 Furosemide (Lasix Iv*) 40 mg IV 0800,1700 [facility] Heparin Sodium (Porcine) (Heparin Flush Port (Ivad)) 5 ml FLUSH DAILY [facility]; Protocol Last Admin: 06/02/18 17:55 Dose: Not Given Heparin Sodium (Porcine) (Heparin Vial(*)) 0 units IV .PRN BOLUS PRN PRN Reason: PER HEPARIN DRIP PROTOCOL Last Admin: 06/03/18 01:46 Dose: 2,000 units Heparin Sodium/Dextrose (Heparin Drip 25,000 Units(*)) 25,000 units in 500 mls @ 0 mls/hr IV PER RATE ABBI; Protocol Last Admin: 06/02/18 19:09 Dose: 20 mls/hr Nitroglycerin/Dextrose (Nitroglycerin Drip*) 25,000 mcg in 250 mls @ 3 mls/hr IV Q24H [facility]; Protocol Last Admin: 06/02/18 22:26 Dose: 3 mls/hr Insulin Glargine (Lantus(*)) 40 units SUBCUT QPM [facility] Last Admin: 06/02/18 17:39 Dose: 40 units Insulin Human Lispro (Humalog*) 0 units SUBCUT ACHS [facility]; Protocol Last Admin: 06/02/18 21:41 Dose: Not Given Latanoprost (Xalatan 0.005%*) 1 drop BOTH EYES QPM [facility] Last Admin: 06/02/18 17:27 Dose: Not Given Metoprolol Tartrate (Lopressor Tab*) 25 mg PO BID [facility] Last Admin: 06/03/18 08:23 Dose: 25 mg Morphine Sulfate (Morphine Vial*) 2 mg IV Q1H PRN PRN Reason: PAIN Nitroglycerin (Nitroglycerin Tab 0.4 Mg*) 0.4 mg SL Q5M PRN PRN Reason: ANGINA Ondansetron HCl (Zofran Inj*) 4 mg IV Q4H PRN PRN Reason: NAUSEA/VOMITING Potassium Chloride (Klor Con Er Tab*) 10 meq PO DAILY [facility] Last Admin: 06/03/18 08:23 Dose: 10 meq Tamsulosin HCl (Flomax Cap*) 0.4 mg PO DAILY [facility] Last Admin: 06/03/18 08:23 Dose: 0.4 mg Valsartan (Diovan Tab*) 320 mg PO QAM [facility] Vital Signs - 8 hr 06/03/18 06/03/18 06/03/18 01:00 01:30 01:46 Temperature Pulse Rate 95 95 100 Respiratory 34 29 18 Rate Blood Pressure 123/81 117/82 120/101 (mmHg) O2 Sat by Pulse 92 92 94 Oximetry 06/03/18 06/03/18 06/03/18 02:00 02:15 02:30 Temperature Pulse Rate 94 94 92 Respiratory 28 29 23 Rate Blood Pressure 130/83 129/86 (mmHg) O2 Sat by Pulse 93 93 95 Oximetry 06/03/18 06/03/18 06/03/18 02:45 03:00 03:15 Temperature Pulse Rate 96 85 87 Respiratory 30 24 28 Rate Blood Pressure 118/77 110/69 110/72 (mmHg) O2 Sat by Pulse 92 91 93 Oximetry 06/03/18 06/03/18 06/03/18 03:30 04:00 04:30 Temperature Pulse Rate 85 88 90 Respiratory 18 26 27 Rate Blood Pressure 114/80 120/83 116/82 (mmHg) O2 Sat by Pulse 93 93 96 Oximetry 06/03/18 06/03/18 06/03/18 05:00 05:30 06:00 Temperature Pulse Rate 90 90 90 Respiratory 23 24 18 Rate Blood Pressure 119/87 123/84 114/84 (mmHg) O2 Sat by Pulse 96 96 96 Oximetry 06/03/18 06/03/18 06/03/18 06:06 06:30 07:00 Temperature 97.8 F Pulse Rate 97 94 Respiratory 30 22 Rate Blood Pressure 127/86 118/82 (mmHg) O2 Sat by Pulse 96 96 Oximetry 06/03/18 06/03/18 07:30 08:00 Temperature 97.5 F Pulse Rate 94 Respiratory 32 Rate Blood Pressure 121/84 (mmHg) O2 Sat by Pulse 97 Oximetry Oxygen Devices in Use Now: High Flow Heated Nasal Cannula Appearance: 82 yo M in nAD, AAOx3 Eyes: No Scleral Icterus, PERRLA Ears/Nose/Mouth/Throat: NL Teeth, Lips, Gums, Mucous Membranes Moist Neck: Trachea Midline, - - + JVD Respiratory: Symmetrical Chest Expansion and Respiratory Effort, - - decreased breath sounds at b/l bases and crackles at b/l lower to mid lungs Cardiovascular: NL Sounds; No Murmurs; No JVD, RRR Abdominal: NL Sounds; No Tenderness; No Distention, No Hepatosplenomegaly Lymphatic: No Cervical Adenopathy Extremities: No Clubbing, Cyanosis, - - b/l pedal edema R>L Skin: No Rash or Ulcers, No Nodules or Sclerosis Neurological: Alert and Oriented x 3, NL Muscle Strength and Tone Result Diagrams: 06/03/18 05:40 06/03/18 05:40 Assess/Plan/Problems-Billing Assessment: 82 yo M with h/o esophageal ca(treated , in remission), DM2, presents with CHF -new, New EF 20% - Patient Problems (1) Acute systolic CHF (congestive heart failure) Comment: Had to be placed on Vapother at night due to acute hypoxemic respiratory failure secondary to CHF (CTA noted with b/l pleurar effusions - kayodeley due to CHF) Start Lasix 40 mg IV BID ABBI, may need to lower Diovan dose at some point to allow BP for diuresis EF 20 %, new c/w 55% prior, as well as mor MR and mod pulm HTN troponin elevated likley due to demand ischemia, but pt needs a cath to eval for CAD as the source of new CHF. Cardiology service is in the process of discussions if pt need to be transferred for the procedure. For now it may be difficult due to Vapotherm need (2) Diabetes Comment: cont ISS, lower home Lantus dose to 20 U today Holding home metformin (3) HLD (hyperlipidemia) Comment: cont Lipitor (4) HTN (hypertension) Comment: controlled , continue valsartan and lopressor (5) DVT prophylaxis Comment: heparin gtt Status and Disposition: inpatient
[2018-06-03] MEDS: Insulin LISPRO* 1 UNITS UNIT SUBCUT SCH ×4 (08:52→21:44)
[2018-06-03] MEDS ORDERED: Magnesium Sulfate 2 GM IV* 2 GM/50 ML BAG IVPB ONE (08:53)
[2018-06-03] MEDS ORDERED: Aspirin TAB* 325 MG PO SCH (09:00)
[2018-06-03] MEDS ORDERED: Valsartan TAB* 160 MG PO SCH (09:00)
[2018-06-03] MEDS ORDERED: Furosemide IV* 10 MG/ML 10 ML VIAL (100 MG) IV SCH (09:00)
[2018-06-03] MEDS ORDERED: Furosemide IV* 10 MG/ML 10 ML VIAL (100 MG) IV ONE (16:07)
[2018-06-03] MEDS: Enoxaparin(*) 100 MG/ML SYR SUBCUT SCH (17:19)
[2018-06-03] MEDS: Captopril TAB* 12.5 MG PO SCH ×2 (17:19→21:46)
[2018-06-03] MEDS: Latanoprost 0.005%* 2.5 ml BTL BOTH EYES SCH (17:20)
[2018-06-03 17:23] LABS: Urine Appearance Clear; Urine Blood Negative (Negative); Urine Color Yellow; Urine Ketones Negative (Negative); Urine Protein Negative (Negative); Urine Red Blood Cell 1+(3-5/hpf) (Absent); Urine Urobilinogen Negative (Negative); Urine White Blood Cell Trace(0-5/hpf) (Absent)
[2018-06-03] MEDS: Insulin GLARGINE(*) 1 UNITS UNIT SUBCUT SCH (18:02)
[2018-06-03] MEDS: Atorvastatin* 40 MG TAB PO SCH (21:45)
--- NOTE | 2018-06-04 03:59 | CONS ---
CC: Dr. Ozuna; Dr. Olivas.* INTERVENTIONAL CARDIOLOGY CONSULT NOTE: DATE OF CONSULT: 06/03/18 DATE OF DICTATION: 06/03/18 PRIMARY CARE PHYSICIAN: Dr. Ozuna. NETWORK CABLE INSTALLER: Dr. Olivas. HISTORY OF PRESENT ILLNESS: An 82-year-old male admitted with decompensated heart failure. Interventional Cardiology consulted regarding further evaluation of LV dysfunction. He is a fairly good historian, he has no previous history of heart disease. He does report longstanding hypertension, has been running systolic blood pressures in the 120s to 150s, apparently on Diovan 320 mg daily. About 4 weeks ago, he started to have some exertional dyspnea. He has had dependent edema for years, although it has worsened recently. He has also had recent weight gain. About 3 weeks ago, he had a severe diarrheal illness, subsequently has developed progressively worsening exertional dyspnea culminating in orthopnea and PND and severe dyspnea prompting ER evaluation. By his scale, he has gained about 5 pounds over the past 2 weeks. He does use lot of salt, that he does not relate any change in medications. He has never had chest tightness or heaviness, has never had the diagnosis of heart failure or coronary disease in the past. Echocardiogram, July 2016 revealed EF of 50% to 55% with normal wall motion. He has a history of prior urinary retention , thinks he may have been told he has urethral stricture, but generally has been able to void, uses Flomax. PAST MEDICAL HISTORY: Hypertension; hyperlipidemia; diabetes, type 2; obesity; history of esophageal cancer, status post therapy, apparently thought to be in remission; BPH. SOCIAL HISTORY: He is . He is a remote smoker. FAMILY HISTORY: Positive for heart disease. ALLERGIES: None to medications. REVIEW OF SYSTEMS: He is fairly inactive, in part because of what sounds like general debility over the past years or so with weakness. Pulmonary: No history of hemoptysis. GI: He denies any history of bleeding or ulcers. V BELT FINISHER: No stroke. PRE-HOSPITAL MEDICATIONS: Listed: 1. Metformin. 2. Insulin. 3. Diovan 320 mg daily. 4. Flomax 0.4 daily. 5. Potassium. PHYSICAL EXAMINATION: Since admission, he has lost about 5 pounds with IV Lasix. He is still tachypneic but less dyspneic. He is obese, not in distress, he is on IV nitroglycerin very low dose 3 mcg, has a Leonardo. He usually uses a urinal at home. Most recent BP, 127/84, pulse 90 sinus, he is afebrile, weight 243 pounds 12 ounces. This morning, per I and O, he is diuresed off 2 L since admission. His lungs, he has markedly diminished breath sounds, half bilaterally, with very distant breath sounds above, dullness to percussion. I do not hear rales. JVP is elevated but I cannot see the top even at 90 degrees. Carotids are palpable without bruits. HEENT is unremarkable without xanthelasma, scleral injection or jaundice. His rest cardial rate is around 28. Cardiac Exam: Heart sounds are extremely distant, I cannot feel apical impulse or RV, I cannot hear any gallop or murmur. Abdomen is obese, he thinks his girth has increased. There is no obvious ascites. I cannot feel the aorta, he has no bruit. Radial, femoral, and pedal pulses are palpable. He has 1+ pitting edema bilaterally. Skin is warm and perfused. DIAGNOSTIC STUDIES/LAB DATA: His chest x-ray shows bilateral pleural effusions and heart failure, new since 2017, his echo was read as marked LV systolic dysfunction with EF of 20% to 25%, his admission hemoglobin, platelet count are normal, BUN 15, creatinine 0.94, random blood sugar 116. His LDL is 92, cholesterol 165, triglycerides 92, HDL 54.9. BNP is high at 377. Electrocardiogram shows somewhat atypical right bundle with left anterior hemiblock with normal WI. Troponins 0.67, 0.85, 0.74. IMPRESSION: Congestive heart failure, systolic, decompensated. The differential is between cardiomyopathy versus and/or coronary disease. There is little to suggest acute coronary syndrome. He is not compensated yet. My recommendation is for aggressive diuresis over the next several days, institution of short-acting RAFAEL inhibitor to allow titration of dose with likely fluctuations in blood pressure as he gets diuresed. I anticipate he likely will be ready for catheterization, Thursday. In the interim, he will be followed by the noninvasive cardiology group. I have taken the liberty of stopping his Leonardo, so he can start to mobilize, started him on Lovenox instead of IV heparin and switch his IV Lasix dose to 80 mg q.a.m., which may need to be supplemented. Thanks for the consultation. [id number]/CPS #: [id number] [facility]
[2018-06-04] MEDS: Enoxaparin(*) 100 MG/ML SYR SUBCUT SCH ×2 (04:55→18:18)
[2018-06-04 05:03] LABS: Hematocrit 43 % (42-52); Hemoglobin 14.6 g/dl (14.0-18.0); Mean Corpuscular HGB Conc 34 g/dl (31-36); Mean Corpuscular Hemoglobin 32 pg (27-31); Mean Corpuscular Volume 93 fL (80-94); Mean Platelet Volume 8.3 um3 (7.4-10.4); Platelet Count 213 10^3/ul (150-450); Red Blood Count 4.59 10^6/ul (4.00-5.40); Red Cell Distribution Width 15 % (10.5-15); White Blood Count 9.2 10^3/ul (3.5-10.8)
[2018-06-04 05:18] LABS: EGFR Non-African American 72.4 (>60)
[2018-06-04] MEDS ORDERED: Furosemide IV* 10 MG/ML 2 ML VIAL (20 MG) IV ONE ×2 (07:00→09:00)
[2018-06-04] MEDS ORDERED: Potassium Chlor TAB* 20 MEQ TAB.ER PO ONE (10:16)
--- NOTE | 2018-06-04 10:16 | PN ---
Subjective Date of Service: 06/04/18 Interval History: Pt denies CP, SOB improving. Diuresed 2 L since admission. Down to 10 L 02. Had leg cramps last night that resolved Objective Active Medications: Acetaminophen (Tylenol Tab*) 975 mg PO Q4H PRN PRN Reason: FEVER/PAIN Al Hydrox/Mg Hydrox/Simethicone (Maalox Plus*) 30 ml PO Q6H PRN PRN Reason: INDIGESTION Albuterol (Ventolin 2.5 Mg/3 Ml Neb.Francy*) 2.5 mg INH [id number] AWAKE PRN PRN Reason: sob/wheezing Ascorbic Acid (Vitamin C Tab*) 500 mg PO QAM [facility] Last Admin: 06/03/18 08:23 Dose: 500 mg Aspirin (Aspirin 81 Mg Chew Tab*) 81 mg PO DAILY [facility] Atorvastatin Calcium (Lipitor*) 40 mg PO 2100 [facility] Last Admin: 06/03/18 21:45 Dose: 40 mg Captopril (Capoten Tab*) 6.25 mg PO TID [facility] Last Admin: 06/03/18 21:46 Dose: 6.25 mg Dextrose (D50w Syringe 50 Ml*) 12.5 gm IV PUSH .FOR FS < 60 - SS PRN PRN Reason: FS < 60 Enoxaparin Sodium (Lovenox(*)) 100 mg SUBCUT Q12H [facility] Last Admin: 06/04/18 04:55 Dose: 100 mg Furosemide (Lasix Iv*) 20 mg IV ONCE ONE Stop: 06/04/18 17:01 Heparin Sodium (Porcine) (Heparin Flush Port (Ivad)) 5 ml FLUSH DAILY [facility]; Protocol Last Admin: 06/03/18 09:06 Dose: Not Given Insulin Glargine (Lantus(*)) 20 units SUBCUT QPM [facility] Last Admin: 06/03/18 18:02 Dose: 20 units Insulin Human Lispro (Humalog*) 0 units SUBCUT ACHS [facility]; Protocol Last Admin: 06/03/18 21:44 Dose: Not Given Latanoprost (Xalatan 0.005%*) 1 drop BOTH EYES QPM [facility] Last Admin: 06/03/18 17:20 Dose: Not Given Metoprolol Tartrate (Lopressor Tab*) 25 mg PO BID [facility] Last Admin: 06/03/18 21:45 Dose: 25 mg Morphine Sulfate (Morphine Vial*) 2 mg IV Q1H PRN PRN Reason: PAIN Nitroglycerin (Nitroglycerin Tab 0.4 Mg*) 0.4 mg SL Q5M PRN PRN Reason: ANGINA Ondansetron HCl (Zofran Inj*) 4 mg IV Q4H PRN PRN Reason: NAUSEA/VOMITING Potassium Chloride (Klor Con Er Tab*) 10 meq PO DAILY [facility] Last Admin: 06/03/18 08:23 Dose: 10 meq Tamsulosin HCl (Flomax Cap*) 0.4 mg PO DAILY [facility] Last Admin: 06/03/18 08:23 Dose: 0.4 mg Vital Signs - 8 hr 06/04/18 06/04/18 06/04/18 02:30 03:00 03:30 Temperature Pulse Rate 81 90 86 Respiratory 23 24 20 Rate Blood Pressure 89/58 94/70 101/71 (mmHg) O2 Sat by Pulse 95 96 98 Oximetry 06/04/18 06/04/18 06/04/18 03:46 04:00 04:30 Temperature 97.3 F Pulse Rate 88 Respiratory 25 26 Rate Blood Pressure 95/71 111/74 (mmHg) O2 Sat by Pulse 98 Oximetry 06/04/18 06/04/18 06/04/18 05:00 06:00 07:00 Temperature Pulse Rate 92 87 93 Respiratory 24 23 15 Rate Blood Pressure 107/83 102/70 115/78 (mmHg) O2 Sat by Pulse 97 96 97 Oximetry 06/04/18 06/04/18 06/04/18 07:42 08:00 08:01 Temperature 97.3 F Pulse Rate 91 90 Respiratory 13 11 Rate Blood Pressure 106/74 (mmHg) O2 Sat by Pulse 92 97 Oximetry 06/04/18 06/04/18 09:06 09:08 Temperature Pulse Rate 106 103 Respiratory 25 Rate Blood Pressure 107/89 (mmHg) O2 Sat by Pulse 96 98 Oximetry Oxygen Devices in Use Now: High Flow Nasal Cannula Appearance: 82 yo M in nAD, aAOx3 Eyes: No Scleral Icterus, PERRLA Ears/Nose/Mouth/Throat: NL Teeth, Lips, Gums, Mucous Membranes Moist Neck: NL Appearance and Movements; NL JVP Respiratory: Symmetrical Chest Expansion and Respiratory Effort, - - decreased breath sounds at bases Cardiovascular: NL Sounds; No Murmurs; No JVD Abdominal: NL Sounds; No Tenderness; No Distention Lymphatic: No Cervical Adenopathy Extremities: No Clubbing, Cyanosis, - - +1 pitting edema b/l improving Skin: No Nodules or Sclerosis Neurological: Alert and Oriented x 3, NL Muscle Strength and Tone Result Diagrams: 06/05/18 05:00 06/05/18 05:00 Assess/Plan/Problems-Billing Assessment: 82 yo M with h/o esophageal ca(treated , in remission), DM2, presents with CHF -new, New EF 20% - Patient Problems (1) Acute systolic CHF (congestive heart failure) Comment: Vapotherm disontinued , now on high flow 02 due to acute hypoxemic respiratory failure secondary to CHF (CTA noted with b/l pleurar effusions - alexus due to CHF) cont Lasix IV as per cardiology. Diovan chenged to Captopril as per Dr. Pereyra EF 20 %, new c/w 55% prior, as well as mor MR and mod pulm HTN troponin elevated likely due to demand ischemia, but pt needs a cath to eval for CAD as the source of new CHF. Cardiology service plans for cath on Thursday (2) Diabetes Comment: cont ISS, cont Lantus daily Holding home metformin (3) HLD (hyperlipidemia) Comment: cont Lipitor (4) HTN (hypertension) Comment: controlled , continue Captopril and lopressor (5) DVT prophylaxis Comment: heparin gtt switched to lovenox Status and Disposition: inpatient
[2018-06-04] MEDS: Insulin LISPRO* 1 UNITS UNIT SUBCUT SCH ×4 (10:34→21:03)
[2018-06-04] MEDS: Aspirin 81 mg CHEW TAB* 81 MG TAB.CHEW PO SCH (10:34)
[2018-06-04] MEDS: Captopril TAB* 12.5 MG PO SCH ×3 (10:34→21:01)
[2018-06-04] MEDS: Ascorbic Acid TAB* 500 MG PO SCH (10:34)
[2018-06-04] MEDS: Tamsulosin CAP* 0.4 MG PO SCH (10:35)
[2018-06-04] MEDS: Metoprolol Tartrate TAB* 25 MG PO SCH ×2 (10:35→21:01)
[2018-06-04] MEDS: Potassium Chlor TAB* 10 MEQ TAB.ER PO SCH (10:35)
[2018-06-04] MEDS ORDERED: Furosemide IV* 10 MG/ML VIAL (40 MG) IV ONE (17:00)
[2018-06-04] MEDS: Latanoprost 0.005%* 2.5 ml BTL BOTH EYES SCH (18:52)
[2018-06-04] MEDS: Insulin GLARGINE(*) 1 UNITS UNIT SUBCUT SCH (18:52)
[2018-06-04] MEDS: Atorvastatin* 40 MG TAB PO SCH (21:00)
[2018-06-05] MEDS: Enoxaparin(*) 100 MG/ML SYR SUBCUT SCH ×2 (05:02→17:32)
[2018-06-05 05:25] LABS: Hematocrit 41 % (42-52); Mean Corpuscular HGB Conc 34 g/dl (31-36); Mean Corpuscular Hemoglobin 32 pg (27-31); Mean Corpuscular Volume 93 fL (80-94); Mean Platelet Volume 8.5 um3 (7.4-10.4); Platelet Count 213 10^3/ul (150-450); Red Blood Count 4.42 10^6/ul (4.00-5.40); Red Cell Distribution Width 15 % (10.5-15); White Blood Count 8.2 10^3/ul (3.5-10.8)
[2018-06-05 05:35] LABS: EGFR Non-African American 69.1 (>60)
[2018-06-05] MEDS ORDERED: Furosemide IV* 10 MG/ML 2 ML VIAL (20 MG) IV ONE (08:16)
--- NOTE | 2018-06-05 09:24 | PN ---
Subjective Date of Service: 06/05/18 Interval History: Was SOB last night, RN noted CLARK. Denies CP. Glucose level at 70 this aM Objective Active Medications: Acetaminophen (Tylenol Tab*) 975 mg PO Q4H PRN PRN Reason: FEVER/PAIN Al Hydrox/Mg Hydrox/Simethicone (Maalox Plus*) 30 ml PO Q6H PRN PRN Reason: INDIGESTION Albuterol (Ventolin 2.5 Mg/3 Ml Neb.Francy*) 2.5 mg INH [id number] AWAKE PRN PRN Reason: sob/wheezing Ascorbic Acid (Vitamin C Tab*) 500 mg PO QAM [facility] Last Admin: 06/04/18 10:34 Dose: 500 mg Aspirin (Aspirin 81 Mg Chew Tab*) 81 mg PO DAILY [facility] Last Admin: 06/04/18 10:34 Dose: 81 mg Atorvastatin Calcium (Lipitor*) 40 mg PO 2100 [facility] Last Admin: 06/04/18 21:00 Dose: 40 mg Captopril (Capoten Tab*) 6.25 mg PO TID [facility] Last Admin: 06/04/18 21:01 Dose: 6.25 mg Dextrose (D50w Syringe 50 Ml*) 12.5 gm IV PUSH .FOR FS < 60 - SS PRN PRN Reason: FS < 60 Enoxaparin Sodium (Lovenox(*)) 100 mg SUBCUT Q12H [facility] Last Admin: 06/05/18 05:02 Dose: 100 mg Heparin Sodium (Porcine) (Heparin Flush Port (Ivad)) 5 ml FLUSH DAILY [facility]; Protocol Last Admin: 06/04/18 10:34 Dose: 5 ml Insulin Glargine (Lantus(*)) 10 units SUBCUT QPM [facility] Insulin Human Lispro (Humalog*) 0 units SUBCUT ACHS [facility]; Protocol Last Admin: 06/04/18 21:03 Dose: 3 units Latanoprost (Xalatan 0.005%*) 1 drop BOTH EYES QPM [facility] Last Admin: 06/04/18 18:52 Dose: Not Given Metoprolol Tartrate (Lopressor Tab*) 25 mg PO BID [facility] Last Admin: 06/04/18 21:01 Dose: 25 mg Morphine Sulfate (Morphine Vial*) 2 mg IV Q1H PRN PRN Reason: PAIN Nitroglycerin (Nitroglycerin Tab 0.4 Mg*) 0.4 mg SL Q5M PRN PRN Reason: ANGINA Ondansetron HCl (Zofran Inj*) 4 mg IV Q4H PRN PRN Reason: NAUSEA/VOMITING Potassium Chloride (Klor Con Er Tab*) 10 meq PO DAILY [facility] Last Admin: 06/04/18 10:35 Dose: 10 meq Tamsulosin HCl (Flomax Cap*) 0.4 mg PO DAILY [facility] Last Admin: 06/04/18 10:35 Dose: 0.4 mg Vital Signs - 8 hr 06/05/18 06/05/18 06/05/18 01:37 02:00 03:00 Temperature Pulse Rate 86 87 94 Respiratory 14 16 19 Rate Blood Pressure 96/72 105/78 122/84 (mmHg) O2 Sat by Pulse 97 98 100 Oximetry 06/05/18 06/05/18 06/05/18 03:31 03:35 04:00 Temperature 98 F Pulse Rate 96 93 Respiratory 21 19 Rate Blood Pressure 122/77 119/75 (mmHg) O2 Sat by Pulse 99 99 Oximetry 06/05/18 06/05/18 06/05/18 04:31 05:00 05:31 Temperature Pulse Rate 90 97 Respiratory 21 24 21 Rate Blood Pressure 100/67 106/71 110/73 (mmHg) O2 Sat by Pulse 92 96 Oximetry 06/05/18 06/05/18 06:00 07:56 Temperature 97.8 F Pulse Rate 97 Respiratory 16 Rate Blood Pressure 106/77 (mmHg) O2 Sat by Pulse 94 Oximetry Oxygen Devices in Use Now: High Flow Nasal Cannula - at 5L/min Appearance: 82 yo M in nAD, aAOx3 Eyes: No Scleral Icterus, PERRLA Ears/Nose/Mouth/Throat: NL Teeth, Lips, Gums, Mucous Membranes Moist Neck: NL Appearance and Movements; NL JVP, Trachea Midline Respiratory: Symmetrical Chest Expansion and Respiratory Effort, Clear to Auscultation, - - faint bibasiliar crackles Cardiovascular: NL Sounds; No Murmurs; No JVD, RRR Abdominal: NL Sounds; No Tenderness; No Distention Lymphatic: No Cervical Adenopathy Extremities: No Clubbing, Cyanosis, - - +1 edema-improving Skin: No Rash or Ulcers, No Nodules or Sclerosis Neurological: Alert and Oriented x 3, NL Muscle Strength and Tone Result Diagrams: 06/05/18 05:00 06/05/18 05:00 Microbiology and Other Data: Microbiology 06/03/18 11:30 Urine Culture - Final Urine No Growth (<1,000 CFU/mL) Assess/Plan/Problems-Billing Assessment: 82 yo M with h/o esophageal ca(treated , in remission), DM2, presents with CHF -new, New EF 20% - Patient Problems (1) Acute systolic CHF (congestive heart failure) Comment: Vapotherm disontinued , high flow 02 on wean due to acute hypoxemic respiratory failure secondary to CHF (CTA noted with b/l pleurar effusions - alexus due to CHF) cont Lasix IV -one dose of 20 mg IV today Diovan changed to Captopril as per Dr. Pereyra, will cont EF 20 %, new c/w 55% prior, as well as mor MR and mod pulm HTN troponin elevated likely due to demand ischemia, but pt needs a cath to eval for CAD as the source of new CHF. Cardiology service plans for cath on Thursday (2) Diabetes Comment: cont ISS, due to hypoglycemia will lower Lantus dose to 1/4 th home dose today at 10 U Holding home metformin (3) HLD (hyperlipidemia) Comment: cont Lipitor (4) HTN (hypertension) Comment: controlled , continue Captopril and lopressor (5) DVT prophylaxis Comment: lovenox Status and Disposition: inpatient
[2018-06-05] MEDS: Insulin LISPRO* 1 UNITS UNIT SUBCUT SCH ×4 (09:47→20:29)
[2018-06-05] MEDS: Potassium Chlor TAB* 10 MEQ TAB.ER PO SCH (09:48)
[2018-06-05] MEDS: Aspirin 81 mg CHEW TAB* 81 MG TAB.CHEW PO SCH (09:48)
[2018-06-05] MEDS: Ascorbic Acid TAB* 500 MG PO SCH (09:48)
[2018-06-05] MEDS: Metoprolol Tartrate TAB* 25 MG PO SCH ×2 (09:48→20:34)
[2018-06-05] MEDS: Tamsulosin CAP* 0.4 MG PO SCH (09:48)
[2018-06-05] MEDS: Captopril TAB* 12.5 MG PO SCH ×3 (10:30→20:34)
[2018-06-05] MEDS: Latanoprost 0.005%* 2.5 ml BTL BOTH EYES SCH (17:34)
[2018-06-05] MEDS ORDERED: Insulin GLARGINE(*) 1 UNITS UNIT SUBCUT SCH (18:00)
[2018-06-05] MEDS: Atorvastatin* 40 MG TAB PO SCH (20:34)
[2018-06-06] MEDS: Albuterol 2.5 MG/3 ML NEB.SOL* (0.083%) INH PRN ×2 (00:28→11:21)
[2018-06-06] MEDS: Enoxaparin(*) 100 MG/ML SYR SUBCUT SCH ×2 (04:26→17:33)
[2018-06-06] MEDS: Insulin LISPRO* 1 UNITS UNIT SUBCUT SCH ×4 (07:49→21:40)
[2018-06-06] MEDS ORDERED: Furosemide IV* 10 MG/ML 2 ML VIAL (20 MG) IV ONE (08:08)
[2018-06-06] MEDS: Metoprolol Tartrate TAB* 25 MG PO SCH ×2 (08:52→20:47)
[2018-06-06] MEDS: Aspirin 81 mg CHEW TAB* 81 MG TAB.CHEW PO SCH (08:53)
[2018-06-06] MEDS: Tamsulosin CAP* 0.4 MG PO SCH (08:53)
[2018-06-06] MEDS: Ascorbic Acid TAB* 500 MG PO SCH (08:53)
[2018-06-06] MEDS: Potassium Chlor TAB* 10 MEQ TAB.ER PO SCH (08:53)
[2018-06-06] MEDS: Captopril TAB* 12.5 MG PO SCH ×3 (08:53→20:46)
[2018-06-06] MEDS: Potassium Chloride LIQUID* 20 MEQ PACKET PO SCH (12:29)
[2018-06-06] MEDS ORDERED: Furosemide IV* 10 MG/ML VIAL (40 MG) IV ONE (14:07)
--- NOTE | 2018-06-06 14:32 | PN ---
Subjective Date of Service: 06/06/18 Interval History: Pt is anxious to have cath tomorrow. Denies CP. Legs less swollen every day Objective Active Medications: Acetaminophen (Tylenol Tab*) 975 mg PO Q4H PRN PRN Reason: FEVER/PAIN Al Hydrox/Mg Hydrox/Simethicone (Maalox Plus*) 30 ml PO Q6H PRN PRN Reason: INDIGESTION Albuterol (Ventolin 2.5 Mg/3 Ml Neb.Francy*) 2.5 mg INH [id number] AWAKE PRN PRN Reason: sob/wheezing Last Admin: 06/06/18 11:21 Dose: 2.5 mg Ascorbic Acid (Vitamin C Tab*) 500 mg PO QAM [facility] Last Admin: 06/06/18 08:53 Dose: 500 mg Aspirin (Aspirin 81 Mg Chew Tab*) 81 mg PO DAILY [facility] Last Admin: 06/06/18 08:53 Dose: 81 mg Atorvastatin Calcium (Lipitor*) 40 mg PO 2100 [facility] Last Admin: 06/05/18 20:34 Dose: 40 mg Captopril (Capoten Tab*) 6.25 mg PO TID [facility] Last Admin: 06/06/18 08:53 Dose: 6.25 mg Dextrose (D50w Syringe 50 Ml*) 12.5 gm IV PUSH .FOR FS < 60 - SS PRN PRN Reason: FS < 60 Enoxaparin Sodium (Lovenox(*)) 100 mg SUBCUT Q12H [facility] Last Admin: 06/06/18 04:26 Dose: 100 mg Heparin Sodium (Porcine) (Heparin Flush Port (Ivad)) 5 ml FLUSH DAILY [facility]; Protocol Last Admin: 06/06/18 12:31 Dose: 5 ml Insulin Glargine (Lantus(*)) 10 units SUBCUT QPM [facility] Last Admin: 06/05/18 17:33 Dose: 10 units Insulin Human Lispro (Humalog*) 0 units SUBCUT [facility]; Protocol Last Admin: 06/06/18 12:29 Dose: 2 units Latanoprost (Xalatan 0.005%*) 1 drop BOTH EYES QPM [facility] Last Admin: 06/05/18 17:34 Dose: Not Given Metoprolol Tartrate (Lopressor Tab*) 25 mg PO BID [facility] Last Admin: 06/06/18 08:52 Dose: 25 mg Morphine Sulfate (Morphine Vial*) 2 mg IV Q1H PRN PRN Reason: PAIN Nitroglycerin (Nitroglycerin Tab 0.4 Mg*) 0.4 mg SL Q5M PRN PRN Reason: ANGINA Ondansetron HCl (Zofran Inj*) 4 mg IV Q4H PRN PRN Reason: NAUSEA/VOMITING Potassium Chloride (Klor Con Er Tab*) 10 meq PO DAILY [facility] Last Admin: 06/06/18 08:53 Dose: 10 meq Potassium Chloride (Klor-Con Liquid*) 20 meq PO DAILY [facility] Last Admin: 06/06/18 12:29 Dose: 20 meq Tamsulosin HCl (Flomax Cap*) 0.4 mg PO DAILY [facility] Last Admin: 06/06/18 08:53 Dose: 0.4 mg Vital Signs - 8 hr 06/06/18 06/06/18 06/06/18 07:57 08:05 11:23 Temperature 97.7 F Pulse Rate 94 89 Respiratory 20 20 18 Rate Blood Pressure 126/69 (mmHg) O2 Sat by Pulse 97 98 Oximetry 06/06/18 11:47 Temperature 97.8 F Pulse Rate 85 Respiratory 22 Rate Blood Pressure 108/63 (mmHg) O2 Sat by Pulse 97 Oximetry Oxygen Devices in Use Now: High Flow Nasal Cannula Appearance: 82 yo M in nAD, aAOx3 Eyes: No Scleral Icterus, PERRLA Ears/Nose/Mouth/Throat: NL Teeth, Lips, Gums, Mucous Membranes Moist Neck: NL Appearance and Movements; NL JVP, Trachea Midline Respiratory: Symmetrical Chest Expansion and Respiratory Effort, - - finbe bibasiliar crackles Cardiovascular: NL Sounds; No Murmurs; No JVD, RRR Abdominal: NL Sounds; No Tenderness; No Distention Lymphatic: No Cervical Adenopathy Extremities: No Clubbing, Cyanosis, - - +1 pitting leg edema b/l Skin: No Nodules or Sclerosis Neurological: Alert and Oriented x 3, NL Muscle Strength and Tone Result Diagrams: 06/05/18 05:00 06/06/18 12:35 Microbiology and Other Data: Microbiology 06/03/18 11:30 Urine Culture - Final Urine No Growth (<1,000 CFU/mL) Assess/Plan/Problems-Billing Assessment: 82 yo M with h/o esophageal ca(treated , in remission), DM2, presents with CHF -new, New EF 20% - Patient Problems (1) Acute systolic CHF (congestive heart failure) Comment: Vapotherm disontinued , down to 4 L 02 Nc. cont Lasix IV 60 mg total todasy Diovan changed to Captopril as per Dr. Pereyra, will cont EF 20 %, new c/w 55% prior, as well as mor MR and mod pulm HTN troponin elevated likely due to demand ischemia, but pt needs a cath to eval for CAD as the source of new CHF. Cardiology service plans for cath on Thursday (2) Diabetes Comment: cont ISS, due to hypoglycemia will lower Lantus dose to 1/4 th home dose at 10 U, will lower it to 5 U due to NPO status in AM Holding home metformin (3) HLD (hyperlipidemia) Comment: cont Lipitor (4) HTN (hypertension) Comment: controlled , continue Captopril and lopressor (5) DVT prophylaxis Comment: lovenox Status and Disposition: inpatient
[2018-06-06] MEDS: Latanoprost 0.005%* 2.5 ml BTL BOTH EYES SCH (16:54)
[2018-06-06] MEDS: Insulin GLARGINE(*) 1 UNITS UNIT SUBCUT SCH (17:39)
[2018-06-06] MEDS: Atorvastatin* 40 MG TAB PO SCH (20:46)
[2018-06-07] MEDS ORDERED: Morphine INJ* 4 MG/ML 1 ML SYRINGE (NEW SYRINGE VERSION) IV PRN (05:00)
[2018-06-07] MEDS: Enoxaparin(*) 100 MG/ML SYR SUBCUT SCH (05:52)
[2018-06-07] MEDS: Insulin LISPRO* 1 UNITS UNIT SUBCUT SCH ×4 (07:33→20:05)
[2018-06-07] MEDS: Captopril TAB* 12.5 MG PO SCH ×3 (07:33→20:02)
[2018-06-07 07:35] LABS: EGFR Non-African American 68.4 (>60)
[2018-06-07] MEDS: Metoprolol Tartrate TAB* 25 MG PO SCH ×2 (07:35→20:02)
[2018-06-07] MEDS: Ascorbic Acid TAB* 500 MG PO SCH (07:35)
[2018-06-07] MEDS: Potassium Chlor TAB* 10 MEQ TAB.ER PO SCH ×2 (07:35→07:40)
[2018-06-07] MEDS: Tamsulosin CAP* 0.4 MG PO SCH (07:35)
[2018-06-07] MEDS: Aspirin 81 mg CHEW TAB* 81 MG TAB.CHEW PO SCH (07:35)
[2018-06-07] MEDS: Potassium Chloride LIQUID* 20 MEQ PACKET PO SCH ×2 (07:35→07:39)
[2018-06-07] MEDS: Albuterol 2.5 MG/3 ML NEB.SOL* (0.083%) INH PRN (07:52)
[2018-06-07] MEDS ORDERED: Heparin 2 UNITS/ML IVPREMIX* 2,000 ML IV ONE (09:27)
[2018-06-07] MEDS ORDERED: Lidocaine 1% INJ* 10 MG/ML 30 ML SDV ONE (09:27)
[2018-06-07] MEDS ORDERED: Iohexol 350 (CONTRAST) 200 ML MDV IV ONE (09:28)
[2018-06-07] MEDS ORDERED: VERAPAMIL 2.5 MG/ML 2 ML VIAL ** 5 mg/2 ml ONE (09:53)
[2018-06-07] MEDS ORDERED: fentaNYL* 50 MCG/ML 2 ML VIAL (100 MCG VIAL) ONE (09:53)
[2018-06-07] MEDS ORDERED: Midazolam* 1 MG/ML 10 ML VIAL (10 MG) ONE (09:53)
[2018-06-07] MEDS ORDERED: nitroGLYCERIN DRIP* 25,000 MCG/250 ML BTL ONE (09:53)
--- NOTE | 2018-06-07 10:03 | PN ---
Subjective Date of Service: 06/07/18 Interval History: pt is seen before cath. C/o SOB when lying flat, but 02 sat >90 on 2 L NC Objective Active Medications: Acetaminophen (Tylenol Tab*) 975 mg PO Q4H PRN PRN Reason: FEVER/PAIN Al Hydrox/Mg Hydrox/Simethicone (Maalox Plus*) 30 ml PO Q6H PRN PRN Reason: INDIGESTION Albuterol (Ventolin 2.5 Mg/3 Ml Neb.Francy*) 2.5 mg INH [id number] AWAKE PRN PRN Reason: sob/wheezing Last Admin: 06/07/18 07:52 Dose: 2.5 mg Ascorbic Acid (Vitamin C Tab*) 500 mg PO QAM [facility] Last Admin: 06/07/18 07:35 Dose: 500 mg Aspirin (Aspirin 81 Mg Chew Tab*) 81 mg PO DAILY [facility] Last Admin: 06/07/18 07:35 Dose: 81 mg Atorvastatin Calcium (Lipitor*) 40 mg PO 2100 [facility] Last Admin: 06/06/18 20:46 Dose: 40 mg Captopril (Capoten Tab*) 6.25 mg PO TID [facility] Last Admin: 06/07/18 07:33 Dose: 6.25 mg Dextrose (D50w Syringe 50 Ml*) 12.5 gm IV PUSH .FOR FS < 60 - SS PRN PRN Reason: FS < 60 Enoxaparin Sodium (Lovenox(*)) 100 mg SUBCUT Q12H [facility] Last Admin: 06/07/18 05:52 Dose: 100 mg Heparin Sodium (Porcine) (Heparin Flush Port (Ivad)) 5 ml FLUSH DAILY [facility]; Protocol Last Admin: 06/07/18 07:41 Dose: Not Given Insulin Glargine (Lantus(*)) 5 units SUBCUT QPM [facility] Last Admin: 06/06/18 17:39 Dose: 5 units Insulin Human Lispro (Humalog*) 0 units SUBCUT ACHS [facility]; Protocol Last Admin: 06/07/18 07:33 Dose: 2 units Latanoprost (Xalatan 0.005%*) 1 drop BOTH EYES QPM [facility] Last Admin: 06/06/18 16:54 Dose: Not Given Metoprolol Tartrate (Lopressor Tab*) 25 mg PO BID [facility] Last Admin: 06/07/18 07:35 Dose: 25 mg Morphine Sulfate (Morphine Inj (Syringe)*) 2 mg IV Q1H PRN PRN Reason: PAIN Nitroglycerin (Nitroglycerin Tab 0.4 Mg*) 0.4 mg SL Q5M PRN PRN Reason: ANGINA Ondansetron HCl (Zofran Inj*) 4 mg IV Q4H PRN PRN Reason: NAUSEA/VOMITING Potassium Chloride (Klor Con Er Tab*) 10 meq PO DAILY [facility] Last Admin: 06/07/18 07:40 Dose: 10 meq Potassium Chloride (Klor-Con Liquid*) 20 meq PO DAILY [facility] Last Admin: 06/07/18 07:39 Dose: 20 meq Tamsulosin HCl (Flomax Cap*) 0.4 mg PO DAILY [facility] Last Admin: 06/07/18 07:35 Dose: 0.4 mg Vital Signs - 8 hr 06/07/18 06/07/18 06/07/18 04:34 07:00 07:18 Temperature 97.6 F 97.4 F Pulse Rate 91 96 Respiratory 24 18 20 Rate Blood Pressure 120/59 136/79 (mmHg) O2 Sat by Pulse 96 98 Oximetry 06/07/18 07:54 Temperature Pulse Rate 92 Respiratory 18 Rate Blood Pressure (mmHg) O2 Sat by Pulse 96 Oximetry Oxygen Devices in Use Now: Nasal Cannula Appearance: 82 yo M in nAD, aAOx3 Eyes: No Scleral Icterus, PERRLA Ears/Nose/Mouth/Throat: NL Teeth, Lips, Gums, Mucous Membranes Moist Neck: NL Appearance and Movements; NL JVP, Trachea Midline Respiratory: Symmetrical Chest Expansion and Respiratory Effort, Clear to Auscultation, - - decreased breath sounds at bases Cardiovascular: NL Sounds; No Murmurs; No JVD, RRR Abdominal: NL Sounds; No Tenderness; No Distention Lymphatic: No Cervical Adenopathy Extremities: No Clubbing, Cyanosis, - - +1 pedal edema b/l Skin: No Rash or Ulcers, No Nodules or Sclerosis Neurological: Alert and Oriented x 3, NL Muscle Strength and Tone Result Diagrams: 06/05/18 05:00 06/07/18 07:00 Microbiology and Other Data: Microbiology 06/03/18 11:30 Urine Culture - Final Urine No Growth (<1,000 CFU/mL) Assess/Plan/Problems-Billing Assessment: 82 yo M with h/o esophageal ca(treated , in remission), DM2, presents with CHF -new, New EF 20% - Patient Problems (1) Acute systolic CHF (congestive heart failure) Comment: Vapotherm disontinued , down to 2 L 02 Nc. For cath today. Duresis held due to cath today Diovan changed to Captopril as per Dr. Pereyra, will cont EF 20 %, new c/w 55% prior, as well as mor MR and mod pulm HTN troponin elevated likely due to demand ischemia, but pt needs a cath to eval for CAD as the source of new CHF. (2) Diabetes Comment: cont ISS, due to hypoglycemia will lower Lantus dose lowered to 5 U due to NPO status today Holding home metformin (3) HLD (hyperlipidemia) Comment: cont Lipitor (4) HTN (hypertension) Comment: controlled , continue Captopril and lopressor (5) DVT prophylaxis Comment: lovenox Status and Disposition: inpatient
[2018-06-07] MEDS ORDERED: NS 0.9% 1000 ML* 1,000 ML IV SCH (10:45)
[2018-06-07] MEDS: Heparin VIAL(*) 5000 UNITS/ML VIAL (FIVE THOUSAND) SUBCUT SCH ×2 (16:31→23:16)
[2018-06-07] MEDS: Insulin GLARGINE(*) 1 UNITS UNIT SUBCUT SCH (18:04)
[2018-06-07] MEDS: Latanoprost 0.005%* 2.5 ml BTL BOTH EYES SCH (18:06)
[2018-06-07] MEDS: Atorvastatin* 40 MG TAB PO SCH (20:02)
[2018-06-08 05:38] LABS: ABS Basophils 0 10^3/ul (0-0.2); ABS Eosinophils 0.1 10^3/ul (0-0.6); ABS Lymphocytes 1.2 10^3/ul (1.0-4.8); ABS Monocytes 0.7 10^3/ul (0-0.8); ABS Nucleated RBC 0 10^3/ul; Eosinophil % 1.7 % (0-6); Hematocrit 42 % (42-52); Hemoglobin 14.7 g/dl (14.0-18.0); Lymphocyte % 16.7 % (25-47); Mean Corpuscular HGB Conc 35 g/dl (31-36); Mean Corpuscular Hemoglobin 33 pg (27-31); Mean Corpuscular Volume 94 fL (80-94); Mean Platelet Volume 8.4 um3 (7.4-10.4); Nucleated Red Blood Cells % 0; Platelet Count 211 10^3/ul (150-450); Red Blood Count 4.49 10^6/ul (4.00-5.40); Red Cell Distribution Width 15 % (10.5-15); White Blood Count 7.1 10^3/ul (3.5-10.8)
[2018-06-08] MEDS: Heparin VIAL(*) 5000 UNITS/ML VIAL (FIVE THOUSAND) SUBCUT SCH ×3 (06:05→21:19)
[2018-06-08] MEDS: Potassium Chloride LIQUID* 20 MEQ PACKET PO SCH (08:01)
[2018-06-08] MEDS: Ascorbic Acid TAB* 500 MG PO SCH (08:01)
[2018-06-08] MEDS: Aspirin 81 mg CHEW TAB* 81 MG TAB.CHEW PO SCH (08:02)
[2018-06-08] MEDS: Metoprolol Tartrate TAB* 25 MG PO SCH ×2 (08:02→21:09)
[2018-06-08] MEDS: Captopril TAB* 12.5 MG PO SCH ×3 (08:02→21:09)
[2018-06-08] MEDS: Potassium Chlor TAB* 10 MEQ TAB.ER PO SCH (08:03)
[2018-06-08] MEDS: Tamsulosin CAP* 0.4 MG PO SCH (08:03)
[2018-06-08] MEDS: Insulin LISPRO* 1 UNITS UNIT SUBCUT SCH ×5 (08:58→22:07)
--- NOTE | 2018-06-08 15:45 | PN ---
Subjective Date of Service: 06/08/18 Interval History: HOSPITALIST PROGRESS NOTE Patient seen and examined at bedside. Care reviewed and d/w Cuco Ayoub RN. He feels better today, still has some dyspnea, but not as intense as before. Family History: Unchanged from Admission Social History: Unchanged from Admission Past Medical History: Unchanged from Admission Objective Active Medications: Acetaminophen (Tylenol Tab*) 975 mg PO Q4H PRN PRN Reason: FEVER/PAIN Al Hydrox/Mg Hydrox/Simethicone (Maalox Plus*) 30 ml PO Q6H PRN PRN Reason: INDIGESTION Albuterol (Ventolin 2.5 Mg/3 Ml Neb.Francy*) 2.5 mg INH [id number] AWAKE PRN PRN Reason: sob/wheezing Last Admin: 06/07/18 07:52 Dose: 2.5 mg Ascorbic Acid (Vitamin C Tab*) 500 mg PO QAM [facility] Last Admin: 06/08/18 08:01 Dose: 500 mg Aspirin (Aspirin 81 Mg Chew Tab*) 81 mg PO DAILY [facility] Last Admin: 06/08/18 08:02 Dose: 81 mg Atorvastatin Calcium (Lipitor*) 40 mg PO 2100 [facility] Last Admin: 06/07/18 20:02 Dose: 40 mg Captopril (Capoten Tab*) 6.25 mg PO TID [facility] Last Admin: 06/08/18 13:13 Dose: 6.25 mg Dextrose (D50w Syringe 50 Ml*) 12.5 gm IV PUSH .FOR FS < 60 - SS PRN PRN Reason: FS < 60 Heparin Sodium (Porcine) (Heparin Flush Port (Ivad)) 5 ml FLUSH DAILY [facility]; Protocol Last Admin: 06/08/18 08:04 Dose: Not Given Heparin Sodium (Porcine) (Heparin Vial(*)) 5,000 units SUBCUT Q8HR [facility] Last Admin: 06/08/18 13:13 Dose: 5,000 units Insulin Glargine (Lantus(*)) 5 units SUBCUT QPM [facility] Last Admin: 06/07/18 18:04 Dose: 5 units Insulin Human Lispro (Humalog*) 0 units SUBCUT ACHS [facility]; Protocol Last Admin: 06/08/18 13:13 Dose: 2 units Latanoprost (Xalatan 0.005%*) 1 drop BOTH EYES QPM [facility] Last Admin: 06/07/18 18:06 Dose: Not Given Metoprolol Tartrate (Lopressor Tab*) 25 mg PO BID [facility] Last Admin: 06/08/18 08:02 Dose: 25 mg Morphine Sulfate (Morphine Inj (Syringe)*) 2 mg IV Q1H PRN PRN Reason: PAIN Nitroglycerin (Nitroglycerin Tab 0.4 Mg*) 0.4 mg SL Q5M PRN PRN Reason: ANGINA Ondansetron HCl (Zofran Inj*) 4 mg IV Q4H PRN PRN Reason: NAUSEA/VOMITING Potassium Chloride (Klor Con Er Tab*) 10 meq PO DAILY [facility] Last Admin: 06/08/18 08:03 Dose: 10 meq Potassium Chloride (Klor-Con Liquid*) 20 meq PO DAILY [facility] Last Admin: 06/08/18 08:01 Dose: 20 meq Tamsulosin HCl (Flomax Cap*) 0.4 mg PO DAILY [facility] Last Admin: 06/08/18 08:03 Dose: 0.4 mg Vital Signs - 8 hr 06/08/18 06/08/18 08:00 10:58 Temperature 97.8 F Pulse Rate 87 Respiratory 16 16 Rate Blood Pressure 126/79 (mmHg) O2 Sat by Pulse 99 Oximetry Oxygen Devices in Use Now: Nasal Cannula - 2 liters Appearance: Pleasant elderly gentleman sitting up in bed in [facility]. Eyes: No Scleral Icterus Ears/Nose/Mouth/Throat: Mucous Membranes Moist Neck: Trachea Midline Respiratory: Symmetrical Chest Expansion and Respiratory Effort, - - BS+ bilaterally with bibasilar crackles Cardiovascular: RRR - Normal S1 and S2 Abdominal: NL Sounds; No Tenderness; No Distention - obese Extremities: - - Mild bilateral LE edema Neurological: Alert and Oriented x 3, NL Muscle Strength and Tone, - - [facility] Result Diagrams: 06/08/18 06:00 06/08/18 06:00 Assess/Plan/Problems-Billing Assessment: 82 yo M with h/o esophageal ca(treated , in remission), DM2, presents with CHF -new, New EF 20% - Patient Problems (1) Acute systolic CHF (congestive heart failure) Comment: - EF 20 %, new c/w 55% prior, as well as mod MR and mod pulm HTN - Troponin elevated likely due to demand ischemia - Cardiac cath did not show enough disease to justify his CMP. - Plan to arrange Life Vest on discharge and consider BiV pacer/ICD as outpatient. - Continue Aspirin, Atorvastatin, Captopril, Metoprolol. - Resume diuresis. (2) Diabetes Comment: - Continue low dose Lantus and Lispro SS. (3) HLD (hyperlipidemia) Comment: - Continue Atorvastatin. (4) HTN (hypertension) Comment: - Controlled - continue Captopril and Metoprolol. (5) DVT prophylaxis Comment: - SQ heparin. Status and Disposition: inpatient
[2018-06-08] MEDS ORDERED: Furosemide IV* 10 MG/ML 2 ML VIAL (20 MG) IV SLOW PU ONE (15:48)
--- NOTE | 2018-06-08 16:10 | CATH ---
CC: Dr. Roly Schmidt; Dr. Chuy Ozuna * CARDIAC CATHETERIZATION REPORT: DATE OF PROCEDURE: 06/07/18 INDICATION FOR PROCEDURE: The patient with severe cardiomyopathy, ejection fraction of 20% to 25%, assessed for the presence of underlying coronary artery disease with abnormal cardiac enzyme. PROCEDURE: Coronary arteriography. PRECARDIAC CATHETERIZATION LABORATORY RESULTS: Hemoglobin and hematocrit 14 and 41 with a platelet count of 213,000. BUN and creatinine of 21 and 1. Sodium of 138, potassium of 3.8, chloride 104, bicarb 27. EQUIPMENT UTILIZED: 1. Right radial artery sheath: A 6-Yemeni Glidesheath. 2. Diagnostic coronary catheter: A 5-Yemeni TIG4 curve catheter for the right coronary artery and a 5-Yemeni FL3.5 catheter for the left coronary artery. 3. Diagnostic guidewire: A 260 length Perez curved guidewire. APPROACH: Right radial artery. MEDICATIONS GIVEN DURING THE CASE: Radial artery cocktail including 300 mcg of nitroglycerin and 3 mg of verapamil. Heparin was not given as the patient had been on Lovenox. DESCRIPTION OF PROCEDURE: The patient was interviewed and examined on the floor of the hospital where the risks and benefits were explained. He understood them and wished to proceed. He was brought to the cardiovascular laboratory and a formal time-out was performed. He was prepped and draped in a sterile fashion. Of note, prior to coming to the terrazzo laborer while on the floor of the hospital, the right radial artery was assessed by ultrasound and found to be acceptable for an approach. In the terrazzo laborer, under ultrasound guidance, the right radial artery was cannulated and the sheath was placed. The radial artery cocktail was given intra-arterially and coronary arteriography was performed. Following this, the catheters were removed along with the sheath and hemostasis was obtained with a Vasc Band. The reverse Barbeau was found to be a B. The total contrast used was 50 cc of Omnipaque dye. The radiation exposure included 5.4 minutes of fluoro time. The air kerma was 1706 milligray. The DAP radiation was 10,175 microgray/sq. m. RESULTS: CORONARY ARTERIOGRAPHY: A. Left coronary artery: 1. Left main - no significant disease 2. Left anterior descending artery - the proximal portion of left anterior descending artery had calcium extending into the midportion. There was mild 35% to 40% narrowing both in the proximal and mid left anterior descending artery. The first diagonal branch was a large vessel posteriorly directed that had a mid 45% to 50% narrowing. The second diagonal branch was smaller in caliber and length and bifurcated in its midportion and had no significant lesions. 3. Circumflex artery - a nondominant vessel with a very thin first and second obtuse marginal branch ending in the low-lying posterior left ventricular branch, which was small in caliber. There was mild luminal irregularity seen. B. Right coronary artery - dominant vessel supplying only the posterior descending artery with no posterior left ventricular branches. The proximal to midportion had moderate disease of 40% to 45% throughout. The posterior descending artery in its proximal portion had 70-75% blockage. Of note, this vessel was small in caliber and appeared to be less than 2 mm. OVERALL ASSESSMENT: Moderate coronary artery disease with moderate-to- significant lesion in the proximal portion of a small-caliber right-sided posterior descending artery. Given the lack of critical disease in all 3 vessels, it does not appear that the cause of the global left ventricular hypokinesis is on the basis of underlying coronary artery disease. Medical management would be best approach at this time, with possible lifevest given his LV dysfunction. This information was shared with both the hospitalist, Dr. Montenegro, as well as Dr. Mark Joiner, the metal flooring installer, who is watching the patient while in hospital. [id number]/[facility] #: [id number] [facility] HOSPITALMarry
[2018-06-08] MEDS: Insulin GLARGINE(*) 1 UNITS UNIT SUBCUT SCH (18:37)
[2018-06-08] MEDS: Latanoprost 0.005%* 2.5 ml BTL BOTH EYES SCH (18:38)
[2018-06-08] MEDS: Atorvastatin* 40 MG TAB PO SCH (21:08)
[2018-06-09] MEDS: Heparin VIAL(*) 5000 UNITS/ML VIAL (FIVE THOUSAND) SUBCUT SCH (06:19)
[2018-06-09 06:47] LABS: EGFR Non-African American 80.8 (>60)
[2018-06-09] MEDS ORDERED: Magnesium Sulfate IV* 2 GM in NS 0.9% 100 ML* 100 ML IV ONE (09:00)
[2018-06-09] MEDS: Tamsulosin CAP* 0.4 MG PO SCH (09:21)
[2018-06-09] MEDS: Insulin LISPRO* 1 UNITS UNIT SUBCUT SCH ×4 (09:22→20:48)
[2018-06-09] MEDS: Potassium Chloride LIQUID* 20 MEQ PACKET PO SCH (09:22)
[2018-06-09] MEDS: Metoprolol Tartrate TAB* 25 MG PO SCH ×2 (09:23→20:47)
[2018-06-09] MEDS: Ascorbic Acid TAB* 500 MG PO SCH (09:24)
[2018-06-09] MEDS: Potassium Chlor TAB* 10 MEQ TAB.ER PO SCH (09:24)
[2018-06-09] MEDS: Captopril TAB* 12.5 MG PO SCH ×3 (09:25→20:47)
[2018-06-09] MEDS: Aspirin 81 mg CHEW TAB* 81 MG TAB.CHEW PO SCH (09:25)
[2018-06-09] MEDS ORDERED: Amiodarone TAB* 400 MG PO ONE (09:40)
[2018-06-09] MEDS ORDERED: Potassium Chlor TAB* 10 MEQ TAB.ER PO ONE (09:42)
--- NOTE | 2018-06-09 09:57 | PN ---
Subjective Date of Service: 06/09/18 - CC: SOB Interval History: The patient was seen with his son. Breathing is much improved, the best it has been since admission. The patient went into atrial flutter, RVR/variable rate approx. 9 AM, the patient is unaware of this. Medications Active Medications: Acetaminophen (Tylenol Tab*) 975 mg PO Q4H PRN PRN Reason: FEVER/PAIN Al Hydrox/Mg Hydrox/Simethicone (Maalox Plus*) 30 ml PO Q6H PRN PRN Reason: INDIGESTION Albuterol (Ventolin 2.5 Mg/3 Ml Neb.Francy*) 2.5 mg INH [id number] AWAKE PRN PRN Reason: sob/wheezing Last Admin: 06/07/18 07:52 Dose: 2.5 mg Amiodarone HCl (Cordarone Tab*) 400 mg PO ONCE ONE Stop: 06/09/18 09:41 Amiodarone HCl (Cordarone Tab*) 400 mg PO DAILY [facility] Ascorbic Acid (Vitamin C Tab*) 500 mg PO QAM [facility] Last Admin: 06/09/18 09:24 Dose: 500 mg Aspirin (Aspirin 81 Mg Chew Tab*) 81 mg PO DAILY [facility] Last Admin: 06/09/18 09:25 Dose: 81 mg Atorvastatin Calcium (Lipitor*) 40 mg PO 2100 [facility] Last Admin: 06/08/18 21:08 Dose: 40 mg Captopril (Capoten Tab*) 6.25 mg PO TID [facility] Last Admin: 06/09/18 09:25 Dose: 6.25 mg Dextrose (D50w Syringe 50 Ml*) 12.5 gm IV PUSH .FOR FS < 60 - SS PRN PRN Reason: FS < 60 Heparin Sodium (Porcine) (Heparin Flush Port (Ivad)) 5 ml FLUSH DAILY [facility]; Protocol Last Admin: 06/09/18 09:28 Dose: Not Given Heparin Sodium (Porcine) (Heparin Vial(*)) 5,000 units SUBCUT Q8HR [facility] Last Admin: 06/09/18 06:19 Dose: 5,000 units Magnesium Sulfate 2 gm/ Sodium (Chloride) 104 mls @ 104 mls/hr IV ONCE ONE Stop: 06/09/18 09:59 Insulin Glargine (Lantus(*)) 5 units SUBCUT QPM [facility] Last Admin: 06/08/18 18:37 Dose: 5 units Insulin Human Lispro (Humalog*) 0 units SUBCUT ACHS [facility]; Protocol Last Admin: 06/09/18 09:22 Dose: 2 units Latanoprost (Xalatan 0.005%*) 1 drop BOTH EYES QPM [facility] Last Admin: 06/08/18 18:38 Dose: Not Given Metoprolol Tartrate (Lopressor Tab*) 25 mg PO BID [facility] Last Admin: 06/09/18 09:23 Dose: 25 mg Morphine Sulfate (Morphine Inj (Syringe)*) 2 mg IV Q1H PRN PRN Reason: PAIN Nitroglycerin (Nitroglycerin Tab 0.4 Mg*) 0.4 mg SL Q5M PRN PRN Reason: ANGINA Ondansetron HCl (Zofran Inj*) 4 mg IV Q4H PRN PRN Reason: NAUSEA/VOMITING Potassium Chloride (Klor Con Er Tab*) 10 meq PO DAILY [facility] Last Admin: 06/09/18 09:24 Dose: 10 meq Potassium Chloride (Klor-Con Liquid*) 20 meq PO DAILY [facility] Last Admin: 06/09/18 09:22 Dose: 20 meq Potassium Chloride (Klor Con Er Tab*) 10 meq PO ONCE ONE Stop: 06/09/18 09:43 Tamsulosin HCl (Flomax Cap*) 0.4 mg PO DAILY [facility] Last Admin: 06/09/18 09:21 Dose: 0.4 mg Objective Vital Signs: Temp Pulse Resp BP Pulse Ox 97.8 F 87 18 133/80 100 06/09/18 08:02 06/09/18 08:02 06/09/18 08:02 06/09/18 08:02 06/09/18 08:02 Oxygen Devices in Use Now: None, Nasal Cannula Appearance: Very overweight elderly gentleman sitting on edge of bed, comfortable at rest, mildly tachypnic talking. Eyes: No Scleral Icterus, PERRLA Ears/Nose/Mouth/Throat: Clear Oropharnyx, Mucous Membranes Moist Neck: Trachea Midline, No Thyroid Enlargement, Masses Respiratory: Symmetrical Chest Expansion and Respiratory Effort - mildly decreased in the bases, few faint crackles in the bases, upper lungfields are clear. Cardiovascular: NL Sounds; No Murmurs; No JVD - irregular, distant. Abdominal: - - obese, normal bowel sounds, non tender. Extremities: No Edema Skin: No Rash or Ulcers Neurological: Alert and Oriented x 3 Lines/Tubes/Other Access: Clean, Dry and Intact Peripheral IV Laboratory Results: 06/08/18 06:00 06/09/18 06:18 Abnormal Lab Results 06/09/18 06/09/18 06:18 08:12 Sodium 138 Potassium 4.0 Chloride 106 Carbon Dioxide 26 Anion Gap 6 BUN 18 Creatinine 0.90 Est GFR ( Amer) 97.8 Est GFR (Non-Af Amer) 80.8 BUN/Creatinine Ratio 20.0 Glucose 131 H POC Glucose (mg/dL) 139 H Calcium 9.5 Magnesium 1.7 L 06/02/18 06/02/18 06/02/18 11:51 16:22 19:15 Troponin I 0.67 H* 0.85 H* 0.74 H* 06/03/18 06/04/18 06/05/18 05:40 04:48 05:00 Troponin I 0.63 H* 0.57 H* 0.30 H* 06/06/18 12:35 Troponin I 0.14 H* Diagnostic Imaging: Cardiac catheterization 06/07/18: mild to moderate disease, does not explain CM. EKG Data: ECG this AM: Afib, RVR, RBBB. Monitor: probable atrial flutter alternating with atrial fib, starting today, in past NSR, brief bursts of SVT. Assessment/Plan 82 yo male admitted with SOB due to CHF, found to have a severe CM, mildly elevated troponins. Cardiac cath shows disease, but CM is out of proportion to his CAD. The patient now developed Atrial fib/flutter with RVR and is asymptomatic. The CM could be tachycardic induced from going in and out of this rhythm. Afib: Changed SQ heparin to full dose Lovenox. Will need NOAC or coumodin on discharge. Made NPO for possible CV this afternoon as just started. Amiodarone started, risks discussed with the patient and his son. We have baseline LFT's, TSH, CXR. I ordered DLCO (being scheduled as outpatient). Agree with optimizing Mag and KCl. CM: Improving and continue on Captopril, metoprolol and lasix. =>I recommend converting KCl to Aldactone as well. I agree with plans for external defibrillator, answered questions about this. Plan outpatient f/u echo and I will follow in the office. CAD: Agree/continue statin. Optimize CAD risks of obesity, DM, BP, Chol, inactivity. CHF: Improving. I discussed low salt diet, he had no recognition of salt in prepared foods. I discussed referral to center for healthy living/Cardiac rehab, after discussion he is amenable to trying this. =>Referral needs to be made if able from [facility].
[2018-06-09] MEDS: Enoxaparin(*) 150 MG/ML 1 ML SYRINGE SUBCUT SCH ×2 (11:55→20:49)
--- NOTE | 2018-06-09 15:54 | PN ---
Subjective Date of Service: 06/09/18 Interval History: HOSPITALIST PROGRESS NOTE Patient seen and examined at bedside. Care reviewed and d/w Sarah Mendes RN. He went in to rapid Afib overnight, not aware of change in rhythm. Denies CP or palpitations. Still has some dyspnea. Family History: Unchanged from Admission Social History: Unchanged from Admission Past Medical History: Unchanged from Admission Objective Active Medications: Acetaminophen (Tylenol Tab*) 975 mg PO Q4H PRN PRN Reason: FEVER/PAIN Al Hydrox/Mg Hydrox/Simethicone (Maalox Plus*) 30 ml PO Q6H PRN PRN Reason: INDIGESTION Albuterol (Ventolin 2.5 Mg/3 Ml Neb.Francy*) 2.5 mg INH [id number] AWAKE PRN PRN Reason: sob/wheezing Last Admin: 06/07/18 07:52 Dose: 2.5 mg Amiodarone HCl (Cordarone Tab*) 400 mg PO DAILY [facility] Ascorbic Acid (Vitamin C Tab*) 500 mg PO QAM [facility] Last Admin: 06/09/18 09:24 Dose: 500 mg Aspirin (Aspirin 81 Mg Chew Tab*) 81 mg PO DAILY [facility] Last Admin: 06/09/18 09:25 Dose: 81 mg Atorvastatin Calcium (Lipitor*) 40 mg PO 2100 [facility] Last Admin: 06/08/18 21:08 Dose: 40 mg Captopril (Capoten Tab*) 6.25 mg PO TID [facility] Last Admin: 06/09/18 14:38 Dose: 6.25 mg Dextrose (D50w Syringe 50 Ml*) 12.5 gm IV PUSH .FOR FS < 60 - SS PRN PRN Reason: FS < 60 Enoxaparin Sodium (Lovenox(*)) 110 mg SUBCUT BID [facility] Last Admin: 06/09/18 11:55 Dose: 110 mg Heparin Sodium (Porcine) (Heparin Flush Port (Ivad)) 5 ml FLUSH DAILY [facility]; Protocol Last Admin: 06/09/18 09:28 Dose: Not Given Insulin Glargine (Lantus(*)) 5 units SUBCUT QPM [facility] Last Admin: 06/08/18 18:37 Dose: 5 units Insulin Human Lispro (Humalog*) 0 units SUBCUT ACHS [facility]; Protocol Last Admin: 06/09/18 12:38 Dose: Not Given Latanoprost (Xalatan 0.005%*) 1 drop BOTH EYES QPM [facility] Last Admin: 06/08/18 18:38 Dose: Not Given Metoprolol Tartrate (Lopressor Tab*) 25 mg PO BID [facility] Last Admin: 06/09/18 09:23 Dose: 25 mg Morphine Sulfate (Morphine Inj (Syringe)*) 2 mg IV Q1H PRN PRN Reason: PAIN Nitroglycerin (Nitroglycerin Tab 0.4 Mg*) 0.4 mg SL Q5M PRN PRN Reason: ANGINA Ondansetron HCl (Zofran Inj*) 4 mg IV Q4H PRN PRN Reason: NAUSEA/VOMITING Potassium Chloride (Klor Con Er Tab*) 10 meq PO DAILY [facility] Last Admin: 06/09/18 09:24 Dose: 10 meq Potassium Chloride (Klor-Con Liquid*) 20 meq PO DAILY [facility] Last Admin: 06/09/18 09:22 Dose: 20 meq Tamsulosin HCl (Flomax Cap*) 0.4 mg PO DAILY [facility] Last Admin: 06/09/18 09:21 Dose: 0.4 mg Vital Signs - 8 hr 06/09/18 06/09/18 06/09/18 08:00 08:02 11:27 Temperature 97.8 F 97.9 F Pulse Rate 87 86 Respiratory 18 18 18 Rate Blood Pressure 133/80 110/68 (mmHg) O2 Sat by Pulse 100 99 Oximetry Oxygen Devices in Use Now: None Appearance: Pleasant obese gentleman lying in bed in NAD. Eyes: No Scleral Icterus Ears/Nose/Mouth/Throat: Mucous Membranes Moist Neck: Trachea Midline Respiratory: Symmetrical Chest Expansion and Respiratory Effort, Clear to Auscultation Cardiovascular: - - Normal S1 and S2, irregularly irregular Neurological: Alert and Oriented x 3, NL Muscle Strength and Tone Result Diagrams: 06/08/18 06:00 06/09/18 06:18 Assess/Plan/Problems-Billing Assessment: 82 yo M with h/o esophageal ca(treated , in remission), DM2, presents with CHF -new, New EF 20% - Patient Problems (1) Atrial fibrillation with RVR Comment: - May be the cause of his drop in EF, as he was probably having episodes of Afib and unaware. - Cardio input appreciated - replete Mg, start Amiodarone. - [id number] score is 5 - on Lovenox for now. (2) Acute systolic CHF (congestive heart failure) Comment: - EF 20 %, new c/w 55% prior, as well as mod MR and mod pulm HTN - Troponin elevated likely due to demand ischemia - Cardiac cath did not show enough disease to justify his CMP. - Plan to arrange Life Vest on discharge and consider BiV pacer/ICD as outpatient. - Continue Aspirin, Atorvastatin, Captopril, Metoprolol. - Resume diuresis. (3) Diabetes Comment: - Continue low dose Lantus and Lispro SS. (4) HLD (hyperlipidemia) Comment: - Continue Atorvastatin. (5) HTN (hypertension) Comment: - Controlled - continue Captopril and Metoprolol. (6) DVT prophylaxis Comment: - Lovenox. Status and Disposition: inpatient
[2018-06-09] MEDS ORDERED: Spironolactone TAB* 25 MG PO SCH (16:00)
[2018-06-09] MEDS: Latanoprost 0.005%* 2.5 ml BTL BOTH EYES SCH (17:31)
[2018-06-09] MEDS: Insulin GLARGINE(*) 1 UNITS UNIT SUBCUT SCH (17:55)
[2018-06-09] MEDS: Atorvastatin* 40 MG TAB PO SCH (20:46)
[2018-06-10 07:07] LABS: EGFR Non-African American 73.2 (>60)
[2018-06-10] MEDS: Ascorbic Acid TAB* 500 MG PO SCH (08:30)
[2018-06-10] MEDS: Captopril TAB* 12.5 MG PO SCH (08:31)
[2018-06-10] MEDS: Aspirin 81 mg CHEW TAB* 81 MG TAB.CHEW PO SCH (08:32)
[2018-06-10] MEDS: Insulin LISPRO* 1 UNITS UNIT SUBCUT SCH ×2 (08:32→12:26)
[2018-06-10] MEDS: Tamsulosin CAP* 0.4 MG PO SCH (08:32)
[2018-06-10] MEDS: Metoprolol Tartrate TAB* 25 MG PO SCH (08:32)
[2018-06-10] MEDS: Enoxaparin(*) 150 MG/ML 1 ML SYRINGE SUBCUT SCH (08:33)
[2018-06-10] MEDS ORDERED: Furosemide TAB* 20 MG PO SCH (09:00)
[2018-06-10] MEDS ORDERED: Amiodarone TAB* 400 MG PO SCH (09:00)
[2018-06-10 13:12] VITALS: BP 109/70
--- NOTE | 2018-06-11 08:26 | DS ---
CC: Dr. Ozuna; Dr. Pereyra; Dr. Olivas; Fabienne Wilcox at [place] * DISCHARGE SUMMARY: DATE OF ADMISSION: 06/02/18 DATE OF DISCHARGE: 06/10/18 PRIMARY CARE PROVIDER: Dr. Ozuna. [employer]: Dr. Pereyra. DISCHARGE DIAGNOSES: 1. New acute systolic congestive heart failure exacerbation. 2. Atrial fibrillation with rapid ventricular rate. 3. Coronary artery disease. 4. Moderate mitral regurgitation. 5. Moderate pulmonary hypertension. SECONDARY DIAGNOSES: 1. History of esophageal cancer, status post chemotherapy. 2. Hypertension. 3. Type 2 diabetes. 4. Benign prostatic hypertrophy. 5. Obesity with a BMI of 36. MEDICATIONS LIST: 1. Glucosamine 1 tablet p.o. daily. 2. Calcium carbonate 500 mg p.o. daily. 3. Acetaminophen 650 mg p.o. daily as needed for pain. 4. Tamsulosin 0.4 mg p.o. daily. 5. Cholecalciferol 400 units p.o. daily. 6. Vitamin C 500 units p.o. daily. 7. Metformin 500 mg p.o. in the morning and 1000 mg p.o. in the evening. 8. Latanoprost 0.005% 1 drop to both eyes at bedtime. New medications: 1. Aldactone 25 mg p.o. daily at 1600. 2. Metoprolol tartrate 25 mg p.o. b.i.d. 3. Furosemide 20 mg p.o. daily. 4. Atorvastatin 40 mg p.o. at bedtime. 5. Aspirin 81 mg p.o. daily. 6. Apixaban 5 mg p.o. daily. 7. Amiodarone 400 mg p.o. daily for 2 weeks, then 200 mg p.o. daily. 8. Captopril 6.25 mg p.o. t.i.d. Medication change: 1. Lantus was reduced to 20 units subcutaneously at bedtime. HOSPITAL COURSE: Mr. Aguilar is an 82-year-old male with past medical history stated above that presented to the emergency room on 06/02/18 with complaints of progressive shortness of breath initially with exertion, then at rest and with orthopnea. For more details about his presentation, I refer you to his history and physical. In the emergency room, the patient had a chest x-ray that showed findings consistent with pulmonary vascular congestion. The CTA of the chest was negative for pulmonary embolism, but there were moderate to large bilateral pleural effusions with bibasilar atelectasis. The patient was admitted with diagnosis of new congestive heart failure and an echocardiogram was performed and it showed an ejection fraction of 20% with severely decreased left ventricular systolic function. [place] has a bit of contractility. The rest of the myocardium is worse. Moderate pulmonary hypertension, moderate MR, moderate TR, and when compared to his prior echo from July 2016, his EF has decreased from 50% to 55%. He was seen in consultation by Cardiology (Dr. Olivas) and her impression is that the patient presents with congestive heart failure with a severe cardiomyopathy. He does have atherosclerotic risks of diabetes, hypertension, dyslipidemia, family history of early atherosclerotic disease and obesity. She recommended a heart cath to determine the state of his vasculature and see if he is a candidate for revascularization. She recommended management of his CHF with Lasix, nitro drip, heparin, beta bertha, RAFAEL inhibitors and statin. The patient was seen in consultation by Interventional Cardiology (Dr. Pereyra) and his recommendation was to continue to manage his congestive heart failure and then pursue cardiac cath that was done on 06/07/18 and revealed 35% to 40% narrowing of the proximal and mid left anterior descending artery. The first diagonal branch had a mid 45% to 50% narrowing. The RCA had 40% to 45% moderate disease in the proximal to mid portion and PDA had a proximal portion with 70% to 75% blockage. The conclusion was that the patient had moderate coronary artery disease with moderate to significant lesion in the proximal portion of the small caliber right- sided posterior descending artery, but given the lack of critical disease in arterial vessels, it does not appear that the cause of the global left ventricular hypokinesis is on the basis of underlying coronary artery disease. Medical management was recommended. The patient continued to respond well to treatment. He did not require further supplemental oxygen, but on 06/09/18, he went into atrial fibrillation and he was found with rapid ventricular rate and he was unaware of the regular rhythm. He responded well to amiodarone and converted it back to sinus rhythm. The patient has a CHADS2-VASc score of 5 and he was initially on Lovenox and after reviewing risks, benefits, and alternatives, decision was made to switch him to Eliquis on discharge. The patient has had significant symptomatic improvement, but with his depressed ejection fraction, the plan is for him to be discharged home with LifeVest and to follow up with Dr. Olivas as outpatient for a repeat followup echo and then decide if he is candidate for an ICD. The patient received education regarding his new diagnosis, his LifeVest. All his and his son's questions were answered and he is medically stable to be discharged today. PHYSICAL EXAMINATION: Vital Signs: Temperature is 97.6, heart rate is 82, respiratory rate is 19, oxygen saturation is 96% on room air, blood pressure is 109/70. General: The patient is a pleasant elderly gentleman sitting up in the chair, in no acute distress. CVS: Normal S1, S2. Regular rate and rhythm. Chest: Breath sounds bilaterally, decreased in bases, but no added sounds. Abdomen is obese. Neuro: He is alert, oriented x3, able to move all 4 extremities. DIET: Consistent carb heart-healthy diet. ACTIVITY: As tolerated. DISPOSITION: To home. STATUS WHILE IN THE HOSPITAL: Inpatient. Please keep in mind this is a summarized version of this patient's hospital stay. If you need more information , please feel free to call me at [phone] or please obtain full medical records. TIME SPENT: Approximately 50 minutes was spent to complete this discharge. [id number]/[facility] #: [id number]
== END 2018-06-10 13:14 | disposition home health service (06) | DRG 286 ==
LOC: ED 10:17 → MEDTELE 15:07 → ICU 21:43 → OBSVTOIN 06-03 09:00 → MEDTELE 06-05 14:03
PROVIDERS: ADMIT Student in an Organized Health Care Education/Training Program; ATTEND Internal Medicine
PROC: 0T9B70Z Drainage of Bladder with Drainage Device, Via Natural or Artificial Opening (ICD-10-PCS; 2018-06-03)
PROC: B2111ZZ Fluoroscopy of Multiple Coronary Arteries using Low Osmolar Contrast (ICD-10-PCS; principal; 2018-06-07 09:30)
DX: I11.0 Hypertensive heart disease with heart failure (principal); J96.01 Acute respiratory failure with hypoxia; I45.2 Bifascicular block; J90 Pleural effusion, not elsewhere classified; J98.11 Atelectasis; I42.9 Cardiomyopathy, unspecified; K21.9 Gastro-esophageal reflux disease without esophagitis; M19.90 Unspecified osteoarthritis, unspecified site; E11.39 Type 2 diabetes mellitus with other diabetic ophthalmic complication; H42 Glaucoma in diseases classified elsewhere; H91.93 Unspecified hearing loss, bilateral; E11.40 Type 2 diabetes mellitus with diabetic neuropathy, unspecified; G47.00 Insomnia, unspecified; N40.0 Benign prostatic hyperplasia without lower urinary tract symptoms; E66.01 Morbid (severe) obesity due to excess calories; E11.36 Type 2 diabetes mellitus with diabetic cataract; E78.5 Hyperlipidemia, unspecified; I08.1 Rheumatic disorders of both mitral and tricuspid valves; G47.62 Sleep related leg cramps; I50.23 Acute on chronic systolic (congestive) heart failure; I25.10 Atherosclerotic heart disease of native coronary artery without angina pectoris; I27.20 Pulmonary hypertension, unspecified; I48.91 Unspecified atrial fibrillation; Z79.84 Long term (current) use of oral hypoglycemic drugs; Z79.82 Long term (current) use of aspirin; Z82.49 Family history of ischemic heart disease and other diseases of the circulatory system; Z97.4 Presence of external hearing-aid; Z85.01 Personal history of malignant neoplasm of esophagus; Z72.89 Other problems related to lifestyle; Z92.21 Personal history of antineoplastic chemotherapy; Z68.36 Body mass index [BMI] 36.0-36.9, adult; Z23 Encounter for immunization; Z87.891 Personal history of nicotine dependence; Z79.01 Long term (current) use of anticoagulants
CPT/HCPCS: 36415; 71045; 71275; 76937; 80048; 80053; 80061; 80076; 81003; 81015; 83605; 83735; 83880; 84439; 84443; 84480; 84484; 85025; 85027; 85610; 85652; 85730; 86141; 86376; 87086; 90686; 93005; 93306; 93454; 94640; 99284; A9270-GY; J1642; J1644; J1650; J1940; J2250; J3010; J3475; Q9967